=== PATIENT | male | born 1985 | race Caucasian/White ===

== ENCOUNTER 2021-05-09 20:41 | Inpatient (IN) | payer MEDICAID, SELFPAY ==
[2021-05-09 21:00] VITALS: BMI 28.1
[2021-05-09 21:01] VITALS: BP 153/110; PULSE 71; RESP 18; TEMP 36.6; O2SAT 97
[2021-05-09] MEDS: nicotine 2 mg Gum BUCCAL (21:53)
[2021-05-09 22:00] VITALS: BP 153/110; PULSE 71; RESP 18; TEMP 36.6; O2SAT 97
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
[2021-05-09] MEDS: metoprolol tartrate 50 mg Tablet PO (23:27)
[2021-05-09 23:28] VITALS: BP 156/110; RESP 16
[2021-05-09] MEDS: cloNIDine 0.1 mg Tablet PO (23:28)
[2021-05-09] MEDS: oxyCODONE-APAP 10-325 mg Tablet 1 TAB PO (23:28)
[2021-05-09] MEDS: lisinopril 10 mg Tablet PO (23:28)
[2021-05-09] MEDS: trazodone 50 mg Tablet PO (23:29)
[2021-05-09] MEDS: BuSPIRONE 10 mg Tablet 5 MG PO (23:29)
[2021-05-10] VITALS (8 sets, daily range): BP systolic 89–142; BP diastolic 54–85; PULSE 45–64; RESP 16–18; TEMP 36.4–36.6; O2SAT 97–98
[2021-05-10] MEDS: oxyCODONE-APAP 10-325 mg Tablet 1 TAB PO ×4 (07:29→21:09)
[2021-05-10] MEDS: BuSPIRONE 10 mg Tablet 5 MG PO (07:30)
[2021-05-10] MEDS: metoprolol tartrate 50 mg Tablet PO (07:30)
[2021-05-10] MEDS: lisinopril 10 mg Tablet PO (07:31)
[2021-05-10] MEDS: meloxicam 7.5 mg tablet 15 MG PO (07:31)
[2021-05-10] MEDS: nicotine 2 mg Gum BUCCAL ×5 (07:31→20:10)
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
--- NOTE | 2021-05-10 12:10 | PM.NHP ---
Providers/Chief Complaint Admitting Physician: Raj Nunez MD Chief Complaint: SI HPI NPU History of Present Illness Enrike Sauer is a 35 year old male Meds NPU Home Medications Medication Instructions Recorded Confirmed Last Taken Type buspirone 5 mg PO TID 05/09/21 05/09/21 05/09/21 13:00 History clonidine HCl 0.1 mg PO 2100 05/09/21 05/09/21 05/08/21 21:00 History cyclobenzaprine 10 mg PO BID PRN 05/09/21 05/09/21 05/09/21 10:43 History lisinopril 10 mg PO DAILY 05/09/21 05/09/21 05/09/21 10:43 History meloxicam 15 mg PO DAILY 05/09/21 05/09/21 05/09/21 10:43 History methocarbamol [Robaxin] 500 mg PO QID 05/09/21 05/09/21 05/08/21 21:00 History metoprolol tartrate [Lopressor] 50 mg PO DAILY 05/09/21 05/09/21 05/08/21 09:00 History oxycodone-acetaminophen [Percocet] 1 tab PO Q6H 05/09/21 05/09/21 05/07/21 21:00 History trazodone 50 mg PO 2100 PRN 05/09/21 05/09/21 05/08/21 21:00 History Allergies Allergy/AdvReac Type Severity Reaction Status Date / Time amoxicillin Allergy ALGY-Anaphy Verified 05/09/21 21:48 laxis haloperidol [From Haldol] Allergy ALGY-Anaphy Verified 05/09/21 21:48 laxis ziprasidone [From Geodon] Allergy ALGY-Anaphy Verified 05/09/21 21:48 laxis PFSH NPU PFSH: Family History (Updated 05/10/21 @ 01:47 by Saima Zhao RN) Father Suicide Sociopathic personality disorder Drug abuse Alcohol abuse Mother Bipolar disorder Drug abuse Vitals/I&O/Wt Last Vital Signs Temp 97.6 F 05/10/21 06:00 Pulse 45 L 05/10/21 06:00 Resp 16 05/10/21 07:29 BP 89/54 05/10/21 06:00 Pulse Ox 98 05/10/21 06:00 Weight last 48 hrs Weight 83.915 kg Weight 88.451 kg Involuntary Hold Information 96 Hour Hold: 96 Hour Involuntary Admission: No Coding Level of Care Code Acute Darkroom Technician for Madie [facility]
[2021-05-10] MEDS: escitalopram 10 mg Tablet PO (12:50)
[2021-05-10] MEDS: bisacodyl 5 mg Tablet 10 MG PO (14:03)
[2021-05-10] MEDS: BuSPIRONE 10 mg Tablet PO ×2 (14:03→20:11)
[2021-05-10] MEDS: polyethylene glycol 3350 Pkt 17 gm PO (17:04)
[2021-05-10] MEDS: betamethasone 0.05% Cream 15 gm 1 APPLIC TOPICAL (17:47)
--- NOTE | 2021-05-10 19:55 | PC.NURSE ---
The patient is requesting a pulmonary inhaler. Stated recently diagnosed COPD. Assessed lung sounds and noted diminished throughout with course bases. Patient not complaining of shortness of breath at this time but requesting an inhaler should he later develop symptoms.
[2021-05-10] MEDS: cloNIDine 0.1 mg Tablet PO (20:10)
[2021-05-10] MEDS: cyclobenzaprine 10 mg Tablet PO (20:12)
[2021-05-10] MEDS: methocarbamol 500 mg Tablet PO (20:12)
[2021-05-10] MEDS: hyDROXYzine 25 mg Capsule 50 MG PO (20:12)
[2021-05-10] MEDS: trazodone 50 mg Tablet 100 MG PO (20:12)
[2021-05-10] MEDS: benztropine 1 mg Tablet PO (20:19)
--- NOTE | 2021-05-10 20:20 | PC.NURSE ---
Patient requesting PRN meds: Robaxin 500mg, Flexeril 10mg, Cogentin 1mg for muscle spasms , muscle tightness and Tardive dyskensia. also Visteril 50 mg for anxiety. All meds given.
--- NOTE | 2021-05-10 21:15 | PC.NURSE ---
Oxycodone 10/325 mg given for C/O back pain rated 8/10 on 0/10 scale.
[2021-05-11] VITALS (10 sets, daily range): BP systolic 96–130; BP diastolic 62–83; PULSE 52–63; RESP 16–19; TEMP 36.1–36.8; O2SAT 95–98
[2021-05-11] MEDS: nicotine 2 mg Gum BUCCAL ×5 (06:56→21:01)
[2021-05-11] MEDS: oxyCODONE-APAP 10-325 mg Tablet 1 TAB PO ×4 (06:56→21:02)
[2021-05-11] MEDS: lisinopril 10 mg Tablet PO (08:13)
[2021-05-11] MEDS: escitalopram 10 mg Tablet PO (08:13)
[2021-05-11] MEDS: metoprolol tartrate 50 mg Tablet PO (08:13)
[2021-05-11] MEDS: meloxicam 7.5 mg tablet 15 MG PO (08:13)
[2021-05-11] MEDS: BuSPIRONE 10 mg Tablet PO ×3 (08:14→21:00)
[2021-05-11] MEDS: polyethylene glycol 3350 Pkt 17 gm PO ×2 (08:15→18:02)
--- NOTE | 2021-05-11 10:50 | PC.NURSE ---
Addendum entered by Yolanda Marroquin RN 05/11/21 11:39: Pain is improving. Original Note: Patient at the nurses station requesting his pain medication and some nicotine gum. PRN oxycodone and nicotine gum administered.
[2021-05-11] MEDS: albuterol 8 gm MDI 2 PUFF INHALATION ×2 (14:59→20:42)
--- NOTE | 2021-05-11 16:01 | PM.NPN ---
Subjective NPU Subjective: Interval history: The patient says he is feeling better today. He worked with the social science manager yesterday to reapply for disability. He says this has been weighing heavily on his mind, causing him a great deal of stress, and he now feels more hopeful because there is a potential of resolution. He does feel that if he were to go home, and find out he had actually lost his disability, he would again feel suicidal. In fact, he says, no, I would kill myself. He slept fairly well last night. Energy and motivation are better today. Suicidal ideation here has decreased. He denies hearing voices or seeing things. There is no paranoia noted. He denies any medication side effects. Mental Status Exam MSE Comments: I met with the patient on the unit. He was calm, cooperative, interactive, and made good eye contact. No psychomotor agitation or retardation. Speech is at a normal volume, and regular rate and rhythm, without pressure. Alert, oriented to person, place, time, situation. Attention and concentration were intact to exam. Memory is intact to the interview. Mood is improved. Affect is brighter. Thought process is logical and goal-directed. Thought content: Denies auditory and visual hallucinations. No delusions noted. No o current suicidal ideation, no homicidal ideation. He says he would again feel quite suicidal if he returned home to the same stressors he had that precipitated admission. Insight and judgment appear to be fair. Vitals/I&O/Wt Last Vital Signs Temp 96.9 F L 05/11/21 14:00 Pulse 52 L 05/11/21 14:00 Resp 18 05/11/21 14:00 BP 113/69 05/11/21 14:00 Pulse Ox 96 05/11/21 14:49 Weight last 48 hrs Weight 83.915 kg Weight 88.451 kg A&P Assessment and plan (1) Borderline personality disorder: Status: Acute (2) Major depressive disorder, recurrent severe without psychotic features: Status: Acute (3) PTSD (post-traumatic stress disorder): Status: Acute (4) COPD with asthma: Status: Acute (5) Family history of suicide: Status: Acute (6) Suicide attempt by hanging: Status: Acute Additional A&P Information Enrike Sauer is a 35 year old male with a history of PTSD with psychosis, chronic pain on Percocet, and a medical marijuana card, who was transferred from [facility] in [place], [place] with complaints of a plan to hang himself. He has a long history of traumatic experiences starting in childhood. His main stressor is that he has lost his disability status. 1. Continue current medication. He is now on trazodone 100 mg at bedtime, BuSpar 10 mg 3 times a day, and Lexapro 10 mg a day. 2. Continue every 15 minute checks for safety. 3. Encourage individual, group and milieu therapies. 4. Encourage sober living treatment after discharge at the highest level of care to which he is willing to commit. 5. The patient was seen by respiratory therapy and was prescribed albuterol inhaler, 2 puffs every 4 hours as needed for Involuntary Hold Information 96 Hour Hold: 96 Hour Involuntary Admission: No Attestations NPU Medical Necessity Statement*: Psychiatric hospitalization is medically necessary to prevent access to lethal means, to reevaluate medication, and to coordinate a safe discharge. Patient will be in the hospital for over 2 midnights. Likely length of stay is 2-4 days. Coding Level of Care Code Acute Agricultural Systems Specialist for g Fwd Diagnoses Borderline personality disorder F60.3 Major depressive disorder, recurrent severe without psychotic features F33.2 PTSD (post-traumatic stress disorder) F43.10 COPD with asthma J44.9 Family history of suicide Z81.8 Suicide attempt by hanging T71.162A
--- NOTE | 2021-05-11 16:01 | PC.NURSE ---
Patient at nurses station requesting pain medication and nicotine gum. Medication administered.
[2021-05-11] MEDS: benztropine 1 mg Tablet PO (16:27)
--- NOTE | 2021-05-11 16:27 | PC.NURSE ---
Patient at nurses station requesting medication for his tics in his face. Medication administered.
[2021-05-11] MEDS: methocarbamol 500 mg Tablet PO (20:59)
[2021-05-11] MEDS: trazodone 50 mg Tablet 100 MG PO (20:59)
[2021-05-11] MEDS: cyclobenzaprine 10 mg Tablet PO (21:01)
[2021-05-11] MEDS: cloNIDine 0.1 mg Tablet PO (21:01)
[2021-05-11] MEDS: hyDROXYzine 25 mg Capsule 50 MG PO (21:04)
--- NOTE | 2021-05-11 21:10 | PC.NURSE ---
Patient requested PRN meds for anxiety, muscle spasms, muscle tightness and pain. Vistaril 50mg PO, Robaxin 500mg PO, Flexeril 10mg PO, Oxeycodone 10/325 PO. Given.
[2021-05-12] VITALS (10 sets, daily range): BP systolic 107–150; BP diastolic 70–92; PULSE 55–64; RESP 15–20; TEMP 36.1–37; O2SAT 96–98
[2021-05-12] MEDS: oxyCODONE-APAP 10-325 mg Tablet 1 TAB PO ×5 (06:39→22:46)
[2021-05-12] MEDS: nicotine 2 mg Gum BUCCAL ×6 (06:39→20:20)
[2021-05-12] MEDS: BuSPIRONE 10 mg Tablet PO ×3 (08:42→20:20)
[2021-05-12] MEDS: metoprolol tartrate 50 mg Tablet PO (08:42)
[2021-05-12] MEDS: lisinopril 10 mg Tablet PO (08:42)
[2021-05-12] MEDS: meloxicam 7.5 mg tablet 15 MG PO (08:42)
[2021-05-12] MEDS: escitalopram 10 mg Tablet PO (08:42)
[2021-05-12] MEDS: polyethylene glycol 3350 Pkt 17 gm PO ×2 (08:43→20:19)
[2021-05-12] MEDS: albuterol 8 gm MDI 2 PUFF INHALATION (09:19)
[2021-05-12] MEDS: benztropine 1 mg Tablet PO (11:00)
--- NOTE | 2021-05-12 11:04 | PC.NURSE ---
PRN Cogentin Physician ordered 2 mg po Cogentin for patients tardive diskinesia.
--- NOTE | 2021-05-12 11:35 | P.PN_ITS ---
Subjective NPU Subjective: Interval history: The patient says he slept well without nightmares. He did have some flashbacks yesterday. He says his mood has been anxious, and worried, about whether his disability will be rescinded. He denies suicidal and homicidal ideation. Medication side effects include constipation caused by Percocet. We discussed potential treatments including senna and Dulcolax. He also says that he has had mouth twitching in the past and has been prescribed Cogentin, which has been helpful. The patient says that he was seen by respiratory therapy and prescribed an inhaler, which was very helpful to him. Mental Status Exam MSE Comments: I met with the patient in his room. He was calm, cooperative, interactive, and made good eye contact. No psychomotor agitation or retardation. Speech is at a normal volume, and regular rate and rhythm, without pressure. Alert, oriented to person, place, time, situation. Attention and concentration were intact to exam. Memory is intact to the interview. Mood is improved. Affect is brighter. Thought process is logical and goal-directed. Thought content: Denies auditory and visual hallucinations. No delusions noted. No o current suicidal ideation, no homicidal ideation. As yesterday, he says he would again feel quite suicidal if he returned home to the same stressors he had that precipitated admission. Insight and judgment appear to be fair. Vitals/I&O/Wt Last Vital Signs Temp 98.1 F 05/12/21 06:00 Pulse 55 L 05/12/21 06:00 Resp 16 05/12/21 06:39 BP 107/70 05/12/21 06:00 Pulse Ox 98 05/12/21 06:39 Weight last 48 hrs Weight 88.451 kg A&P Assessment and plan (1) Major depressive disorder, recurrent severe without psychotic features: Status: Acute (2) PTSD (post-traumatic stress disorder): Status: Acute (3) Family history of suicide: Status: Acute (4) Suicide attempt by hanging: Status: Acute (5) COPD with asthma: Status: Acute (6) Borderline personality disorder: Status: Acute Additional A&P Information Enrike Sauer is a 35 year old male with a history of PTSD with psychosis, chronic pain on Percocet, and a medical marijuana card, who was transferred from [facility] in [place], [place] with complaints of a plan to hang himself. He has a long history of traumatic experiences starting in childhood. His main stressor is that he has lost his disability status. 1. Continue current medication. He is now on trazodone 100 mg at bedtime, BuSpar 10 mg 3 times a day, and Lexapro 10 mg a day. 2. Continue every 15 minute checks for safety. 3. Encourage individual, group and milieu therapies. 4. Encourage sober living treatment after discharge at the highest level of care to which he is willing to commit. 5. The patient was seen by respiratory therapy yesterday and was prescribed albuterol inhaler, 2 puffs every 4 hours as needed for shortness of breath 6. We are assisting the patient with his disability reapplication. Losing his disability, is the major stressor that precipitated his admission. Involuntary Hold Information 96 Hour Hold: 96 Hour Involuntary Admission: No Attestations NPU Medical Necessity Statement*: Psychiatric hospitalization is medically necessary to prevent access to lethal means, to reevaluate medication, and to coordinate a safe discharge. Patient will be in the hospital for over 2 midnights. Likely length of stay is 1-3 days. Coding Level of Care Code Acute Inspector [employer] for [facility] Fwd Diagnoses Major depressive disorder, recurrent severe without psychotic features F33.2 PTSD (post-traumatic stress disorder) F43.10 Family history of suicide Z81.8 Suicide attempt by hanging T71.162A COPD with asthma J44.9 Borderline personality disorder F60.3
[2021-05-12] MEDS: bisacodyl 5 mg Tablet 10 MG PO (13:04)
[2021-05-12] MEDS: cloNIDine 0.1 mg Tablet PO (20:20)
[2021-05-12] MEDS: hyDROXYzine 25 mg Capsule 50 MG PO (20:58)
[2021-05-12] MEDS: trazodone 50 mg Tablet 100 MG PO (20:58)
--- NOTE | 2021-05-12 20:59 | PC.NURSE ---
pt requested anxiety med, vistaril 50mg po given.
[2021-05-12] MEDS: trazodone 50 mg Tablet PO (22:45)
[2021-05-13 06:00] VITALS: BP 125/76; PULSE 83; RESP 16; TEMP 36.8; O2SAT 98
[2021-05-13] MEDS: metoprolol tartrate 50 mg Tablet PO (08:41)
[2021-05-13] MEDS: lisinopril 10 mg Tablet PO (08:41)
[2021-05-13 08:42] VITALS: RESP 18
[2021-05-13] MEDS: meloxicam 7.5 mg tablet 15 MG PO (08:42)
[2021-05-13] MEDS: escitalopram 10 mg Tablet PO (08:42)
[2021-05-13] MEDS: BuSPIRONE 10 mg Tablet PO ×2 (08:42→14:19)
[2021-05-13] MEDS: oxyCODONE-APAP 10-325 mg Tablet 1 TAB PO ×3 (08:42→17:09)
[2021-05-13] MEDS: ondansetron 4 MG Tablet PO ×2 (08:42→11:56)
[2021-05-13] MEDS: nicotine 2 mg Gum BUCCAL ×3 (08:43→17:09)
--- NOTE | 2021-05-13 08:44 | PC.NURSE ---
PRN ZOFRAN 4 MG GIVEN PO PER PT C/O STATED NAUSEA
[2021-05-13 10:41] VITALS: RESP 18
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
[2021-05-13 12:22] VITALS: RESP 18
[2021-05-13 13:07] VITALS: RESP 17
[2021-05-13] MEDS: betamethasone 0.05% Cream 15 gm 1 APPLIC TOPICAL (14:21)
--- NOTE | 2021-05-13 14:23 | PC.NURSE ---
PRN DIPROLENE 1 APPLICATION GIVEN PO PER PT C/O STATED IRRITATION TO HIS HEAD AREA
--- NOTE | 2021-05-13 14:27 | NPU.GN ---
[facility] Topic: Coping skills for stress General Mood of Group Patient did not come to group today. Laying in bed asleep.
--- NOTE | 2021-05-13 16:48 | PC.RESP ---
Pulmonary Rehab information sent to patient.
[2021-05-13 17:09] VITALS: RESP 18
== END 2021-05-13 18:24 | disposition home or self-care (01) | DRG 882 ==
PROVIDERS: Admitting Provider Psychiatry & Neurology Child & Adolescent Psychiatry; Visit Provider Psychiatry & Neurology Child & Adolescent Psychiatry
DX: F43.10 Post-traumatic stress disorder, unspecified (principal); F33.2 Major depressive disorder, recurrent severe without psychotic features; R45.851 Suicidal ideations; F60.3 Borderline personality disorder; F12.90 Cannabis use, unspecified, uncomplicated; G89.29 Other chronic pain; M54.31 Sciatica, right side; J44.9 Chronic obstructive pulmonary disease, unspecified; I10 Essential (primary) hypertension; R00.0 Tachycardia, unspecified; G62.9 Polyneuropathy, unspecified; Z81.8 Family history of other mental and behavioral disorders; Z62.810 Personal history of physical and sexual abuse in childhood; Z63.0 Problems in relationship with spouse or partner; Z91.5 Personal history of self-harm
CPT/HCPCS: 94640; 94664; J3535; Q0162

== ENCOUNTER 2022-05-08 21:01 | Inpatient (IN) | payer MEDICAID, SELFPAY ==
[2022-05-08 15:43] VITALS: BP 147/97; PULSE 93; RESP 18; TEMP 36.7; O2SAT 97
[2022-05-08 21:07] VITALS: BMI 27.3
[2022-05-08] MEDS: trazodone 50 mg Tablet PO (21:19)
[2022-05-08] MEDS: nicotine 2 mg Gum BUCCAL (21:19)
[2022-05-08 22:00] VITALS: BP 147/97; PULSE 93; RESP 18; TEMP 36.7; O2SAT 97
[2022-05-09] VITALS (7 sets, daily range): BP systolic 133–136; BP diastolic 65–77; PULSE 69–74; RESP 16–18; TEMP 36.8; O2SAT 96–98
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
[2022-05-09] MEDS: nicotine 2 mg Gum BUCCAL ×5 (09:14→20:45)
[2022-05-09] MEDS: metoprolol tartrate 50 mg Tablet 25 MG PO (09:14)
[2022-05-09] MEDS: methocarbamol 500 mg Tablet PO ×3 (09:14→20:44)
[2022-05-09] MEDS: lisinopril 10 mg Tablet PO (09:14)
[2022-05-09] MEDS: venlafaxine ER (24HR) 150 mg Capsule PO (09:14)
[2022-05-09] MEDS: meloxicam 7.5 mg tablet 15 MG PO (09:14)
--- NOTE | 2022-05-09 09:53 | PC.NURSE ---
called [facility] [phone], in [place], [place] to hol[place]y med Oxy per pt & physician request. they said he picked up script last on March 11, Oxy 10/325 mg qty #120...
[2022-05-09] MEDS: oxyCODONE-APAP 10-325 mg Tablet 1 TAB PO ×4 (10:05→22:28)
[2022-05-09] MEDS: quetiapine 100 mg Tablet PO (20:44)
[2022-05-09] MEDS: trazodone 50 mg Tablet PO (20:44)
[2022-05-10 05:50] VITALS: BP 98/62; PULSE 50; RESP 18; O2SAT 96
[2022-05-10] MEDS: metoprolol tartrate 50 mg Tablet 25 MG PO (08:21)
[2022-05-10] MEDS: lisinopril 10 mg Tablet PO (08:22)
[2022-05-10] MEDS: methocarbamol 500 mg Tablet PO ×3 (08:22→22:09)
[2022-05-10] MEDS: meloxicam 7.5 mg tablet 15 MG PO (08:23)
[2022-05-10] MEDS: venlafaxine ER (24HR) 75 mg Capsule 225 MG PO (08:23)
[2022-05-10 08:37] VITALS: RESP 18
[2022-05-10] MEDS: nicotine 2 mg Gum BUCCAL ×5 (08:37→22:31)
[2022-05-10] MEDS: oxyCODONE-APAP 10-325 mg Tablet 1 TAB PO ×4 (08:37→22:09)
[2022-05-10 13:40] VITALS: RESP 16
[2022-05-10 14:00] VITALS: BP 123/67; PULSE 66; RESP 15; TEMP 36.9; O2SAT 98
[2022-05-10] MEDS: simethicone 80 mg Chew PO (14:06)
--- NOTE | 2022-05-10 14:57 | P.NPUPN_ITS ---
Subjective NPU Subjective: Patient is a 36-year-old white male with a history of PTSD and major depressive disorder admitted with suicidal ideation with a history of chronic pain. Patient had discussed his progress with EMDR therapy recently. He continues to endorse having suicidal thoughts but reports some improved a bility to manage his stressors. He continues to endorse nightmares and flashbacks. He had described in having an extensive history of suicidal thoughts chronically and reports significant feelings of hopelessness and issues with managing the frequent panic attacks. Patient reported that he had some increase in agitation and reports the Seroquel had helped him sleep better but did not help him to keep calm. He continue to report low energy Mental Status Exam MSE Comments: Patient's initially appeared pacing and appeared easily startled throughout much of the interview. He was alert and oriented to person place time and situation. His mood was described as depressed. his affect appeared restricted. His gait was antalgic. His hygiene was fair. His speech was normal in regards to rate rhythm and prosody. His thought process was linear and logical and goal directed. His thought content showed no evidence of active homicidal ideation. He did endorse suicidal ideation with a plan reported previously but able to contract for safety on interview. His recent and remote memory appeared intact. There was no clear evidence of delusional thinking. His insight was fair. His judgment was poor. His impulse control appeared poor. Vitals/I&O/Wt Last Vital Signs Temp 98.4 F 05/10/22 14:00 Pulse 66 05/10/22 14:00 Resp 15 05/10/22 14:00 BP 123/67 05/10/22 14:00 Pulse Ox 98 05/10/22 14:00 O2 Del Method 05/08/22 22:00 Weight last 48 hrs Weight 81.647 kg A&P Assessment and plan (1) Major depressive disorder, recurrent severe without psychotic features: Status: Chronic (2) PTSD (post-traumatic stress disorder): Status: Chronic (3) Borderline personality disorder: Status: Chronic (4) COPD with asthma: Status: Chronic Plan The patient is a 36-year-old white male with a history of PTSD major depressive disorder along with borderline personality traits with a history of multiple inpatient hospitalizations currently reporting worsening depression with continued chronic PTSD symptoms that appear unabated. TO-15 minute checks Continue Effexor XR 225mg in am Increase Seroquel 150mg at night to target PTSD symptoms, zyprexa prn 5mg for acute agitation Involuntary Hold Information 96 Hour Hold: 96 Hour Involuntary Admission: No Attestations NPU Medical Necessity Statement*: Psychiatric hospitalization is medically necessary to prevent access to lethal means, to reevaluate medication, and to coordinate a safe discharge.Patient's likely length of stay is 2-4 days. Coding Level of Care Code Established Pt Acute Senior Interaction Designer for Chg Fwd Patient Type Established Medical Decision Making Straight Forward Diagnoses Major depressive disorder, recurrent severe without psychotic features F33.2 PTSD (post-traumatic stress disorder) F43.10 Borderline personality disorder F60.3 COPD with asthma J44.9
[2022-05-10 17:06] VITALS: RESP 16; O2SAT 99
[2022-05-10 21:03] VITALS: BP 123/71; PULSE 76; RESP 16; TEMP 36.5; O2SAT 98
[2022-05-10] MEDS: quetiapine 300 mg Tablet 150 MG PO (22:09)
[2022-05-11] VITALS (7 sets, daily range): BP systolic 134–146; BP diastolic 54–88; PULSE 64–72; RESP 16–18; TEMP 36.6–37; O2SAT 98
[2022-05-11] MEDS: oxyCODONE-APAP 10-325 mg Tablet 1 TAB PO ×5 (06:46→20:24)
[2022-05-11] MEDS: nicotine 2 mg Gum BUCCAL ×6 (06:48→20:26)
[2022-05-11] MEDS: venlafaxine ER (24HR) 75 mg Capsule 225 MG PO (08:13)
[2022-05-11] MEDS: methocarbamol 500 mg Tablet PO ×3 (08:13→20:24)
[2022-05-11] MEDS: lisinopril 10 mg Tablet PO (08:14)
[2022-05-11] MEDS: metoprolol tartrate 50 mg Tablet 25 MG PO (08:14)
[2022-05-11] MEDS: meloxicam 7.5 mg tablet 15 MG PO (08:14)
--- NOTE | 2022-05-11 11:14 | P.NPUPN_ITS ---
Subjective NPU Subjective: Patient is a 36-year-old white male with a history of PTSD and major depressive disorder admitted with suicidal ideation with a history of chronic pain. Patient had requested that he be given EMDR on discharge. Patient had reported that he continues to struggle with trust of others, reports intense mood swings, unstable affect, and continued PTSD symptoms including depressed mood, chronic suicidal thoughts and frequent feelings of hopelessness. Patient reports He continues to endorse having suicidal thoughts but reports some improved ability to manage his stressors. He continues to endorse nightmares and flashbacks. He had described in having an extensive history of suicidal thoughts chronically and reports significant feelings of hopelessness and issues with managing the frequent panic attacks. Patient had obsessed about wanting to be evaluated for Mental Status Exam MSE Comments: Patient's casually dressed white male, appeared his stated age. He was alert and oriented to person, place and time. His mood was described as depressed. his affect remained restricted. His gait was antalgic. His hygiene was fair. His speech was normal in regards to rate rhythm and prosody. His thought process was linear and logical and goal directed. His thought content showed no evidence of active homicidal ideation. He did endorse suicidal ideation with a plan reported previously but able to contract for safety on interview. His recent and remote memory appeared intact. There was no clear evidence of delusional thinking. His insight was fair. His judgment was poor. His impulse control appeared poor. Vitals/I&O/Wt Last Vital Signs Temp 98 F 05/11/22 14:00 Pulse 64 05/11/22 14:00 Resp 17 05/11/22 17:23 BP 134/54 05/11/22 14:00 Pulse Ox 98 05/11/22 14:00 O2 Del Method 05/08/22 22:00 Weight last 48 hrs Weight 81.556 kg A&P Assessment and plan (1) Major depressive disorder, recurrent severe without psychotic features: Status: Chronic (2) PTSD (post-traumatic stress disorder): Status: Chronic (3) Borderline personality disorder: Status: Chronic (4) COPD with asthma: Status: Chronic Plan The patient is a 36-year-old white male with a history of PTSD major depressive disorder along with borderline personality traits with a history of multiple inpatient hospitalizations currently reporting worsening depression with continued chronic PTSD symptoms that appear unabated. TO-15 minute checks Continue Effexor XR 225mg in am Increase Seroquel 200mg at night to target PTSD symptoms, zyprexa prn 5mg for acute agitation Calamine lotion for poison clayton. Involuntary Hold Information 96 Hour Hold: 96 Hour Involuntary Admission: No Attestations NPU Medical Necessity Statement*: Psychiatric hospitalization is medically necessary to prevent access to lethal means, to reevaluate medication, and to coordinate a safe discharge.Patient's likely length of stay is 2-4 days. Coding Level of Care Code Established Pt Acute Claims Attorney for [facility] Patient Type Established History Problem Focused Exam Problem Focused Medical Decision Making Straight Forward Diagnoses Major depressive disorder, recurrent severe without psychotic features F33.2 PTSD (post-traumatic stress disorder) F43.10 Borderline personality disorder F60.3 COPD with asthma J44.9
[2022-05-11] MEDS: simethicone 80 mg Chew PO ×2 (13:37→20:38)
--- NOTE | 2022-05-11 13:38 | PC.NURSE ---
Addendum entered by Jewell Foss LPN 05/11/22 16:34: prn med effective no further c/o gas Original Note: PRN MYLICON 80 MG CHEWABLE TAB GIVEN PO PER PT C/O GAS
[2022-05-11] MEDS: quetiapine 100 mg Tablet 200 MG PO (20:25)
[2022-05-11] MEDS: hyDROXYzine 25 mg Capsule 50 MG PO (20:38)
[2022-05-12] VITALS (7 sets, daily range): BP systolic 110–151; BP diastolic 64–91; PULSE 77–97; RESP 14–20; TEMP 36.6–36.9; O2SAT 96–99
[2022-05-12] MEDS: nicotine 2 mg Gum BUCCAL ×8 (06:35→23:03)
[2022-05-12] MEDS: oxyCODONE-APAP 10-325 mg Tablet 1 TAB PO ×5 (06:36→22:46)
[2022-05-12] MEDS: meloxicam 7.5 mg tablet 15 MG PO (07:51)
[2022-05-12] MEDS: venlafaxine ER (24HR) 75 mg Capsule 225 MG PO (07:51)
[2022-05-12] MEDS: lisinopril 10 mg Tablet PO (07:52)
[2022-05-12] MEDS: methocarbamol 500 mg Tablet PO ×3 (07:52→20:08)
[2022-05-12] MEDS: metoprolol tartrate 50 mg Tablet 25 MG PO (07:52)
[2022-05-12] MEDS: simethicone 80 mg Chew PO ×3 (08:48→21:46)
--- NOTE | 2022-05-12 08:49 | PC.NURSE ---
PRN MYLICON 80 MG CHEWABLE GIVEN PO PER PT C/O GAS
--- NOTE | 2022-05-12 18:41 | P.NPUPN_ITS ---
Subjective NPU Subjective: Patient is a 36-year-old white male with a history of PTSD, BPDO and major depressive disorder admitted with suicidal ideation with a history of chronic pain. Patient reports having suicidal thoughts frequently but reports that they have been quieter. He continued to report having low energy. He did report some improvement with sleep. He does continue to report having frequent nightmares. He reports that he wishes to get further psychotherapy to help with managing his flashbacks nightmares avoidance and problems with being easily startled. He states that he likes being in places where there are less people. He had continue to report significant itching with apparent poison clayton noted on his body. He reported less angry thoughts and states that he has been feeling calmer with the Seroquel. He had reported a history of relative isolation and reported having struggles with maintaining relationships and trusting others. Mental Status Exam MSE Comments: Patient's casually dressed white male, appeared his stated age. He was pleasant and cooperative on interview. He was alert and oriented to person, place and time. His mood was described as okay his affect remained restricted. His gait was antalgic. His hygiene was fair. His speech was normal in regards to rate rhythm and prosody. His thought process was linear and logical and goal directed. His thought content showed no evidence of active homicidal ideation. He did endorse suicidal ideation with no plan and is able to contract for safety on interview. His recent and remote memory appeared intact. There was no clear evidence of delusional thinking. His insight was fair. His judgment was poor. His impulse control appeared to be better. Vitals/I&O/Wt Last Vital Signs Temp 98 F 05/12/22 14:00 Pulse 77 05/12/22 14:00 Resp 14 05/12/22 14:43 BP 114/64 05/12/22 14:00 Pulse Ox 96 05/12/22 14:43 O2 Del Method 05/12/22 06:00 Weight last 48 hrs Weight 81.556 kg A&P Assessment and plan (1) Major depressive disorder, recurrent severe without psychotic features: Status: Chronic (2) PTSD (post-traumatic stress disorder): Status: Chronic (3) Borderline personality disorder: Status: Chronic (4) COPD with asthma: Status: Chronic Plan The patient is a 36-year-old white male with a history of PTSD major depressive disorder along with borderline personality traits with a history of multiple inpatient hospitalizations currently reporting worsening depression with continued chronic PTSD symptoms that appear unabated. TO-15 minute checks Continue Effexor XR 225mg in am continue Seroquel 200mg at night to target PTSD symptoms, zyprexa prn 5mg for acute agitation Calamine lotion for poison clayton. Case management services necessary with psychotherapy for PTSD likely to be VERY helpful. Involuntary Hold Information 96 Hour Hold: 96 Hour Involuntary Admission: No Attestations NPU Medical Necessity Statement*: Psychiatric hospitalization is medically necessary to prevent access to lethal means, to reevaluate medication, and to coordinate a safe discharge.Patient's likely length of stay is 1-3 days. Coding Level of Care Code Established Pt Acute Fabric Separator Operator for Madie Potts Patient Type Established History Problem Focused Exam Problem Focused Medical Decision Making Straight Forward Diagnoses Major depressive disorder, recurrent severe without psychotic features F33.2 PTSD (post-traumatic stress disorder) F43.10 Borderline personality disorder F60.3 COPD with asthma J44.9
[2022-05-12] MEDS: hyDROXYzine 25 mg Capsule 50 MG PO (20:08)
[2022-05-12] MEDS: quetiapine 100 mg Tablet 200 MG PO (20:08)
[2022-05-13 06:00] VITALS: BP 156/92; PULSE 83; RESP 18; TEMP 37.2; O2SAT 98
[2022-05-13] MEDS: nicotine 2 mg Gum BUCCAL ×6 (06:02→21:48)
[2022-05-13] MEDS: oxyCODONE-APAP 10-325 mg Tablet 1 TAB PO ×5 (06:02→22:46)
[2022-05-13 10:11] VITALS: RESP 18
[2022-05-13] MEDS: meloxicam 7.5 mg tablet 15 MG PO (10:12)
[2022-05-13] MEDS: methocarbamol 500 mg Tablet PO ×3 (10:12→20:03)
[2022-05-13] MEDS: venlafaxine ER (24HR) 75 mg Capsule 225 MG PO (10:13)
[2022-05-13] MEDS: metoprolol tartrate 50 mg Tablet 25 MG PO (10:14)
[2022-05-13] MEDS: lisinopril 10 mg Tablet PO (10:15)
[2022-05-13] MEDS: OLANZapine 5 mg ODT PO (12:19)
[2022-05-13] MEDS: benztropine 1 mg Tablet PO (12:54)
--- NOTE | 2022-05-13 12:58 | PC.NURSE ---
At 1219 patient was given zydis 5 mg sl given for voiced anxiety.
[2022-05-13 14:00] VITALS: BP 154/83; PULSE 74; RESP 16; TEMP 36.9; O2SAT 97
[2022-05-13 14:25] VITALS: RESP 18
--- NOTE | 2022-05-13 17:44 | W.PM.NPUPNS ---
Subjective NPU Subjective: Patient is a 36-year-old white male with a history of PTSD, BPDO and major depressive disorder admitted with suicidal ideation with a history of chronic pain. Patient reports having suicidal thoughts frequently but reports that they have been less intense. He continues to engage in splitting on the milieu. He continues to require redirection on the milieu asking that he be allowed to transfer to a different hospital because social human services assistants here were not meeting his needs in a timely fashion. He had reported that he could simply be discharged and go back to the emergency room but transferred somewhere else. Despite this, he continues to report being easily startled and reports that he does not wish to go to a long term and reports being frustrated with not having his needs met. Patient has been minimally compliant in groups but had reported hope of receiving intense outpatient services such as emdr upon his discharge and follow up with outpatient treatment. He had reported paranoia. Mental Status Exam MSE Comments: Patient's casually dressed white male, appeared his stated age. He was pleasant and cooperative on interview. He was alert and oriented to person, place and time. His mood was described as upset his affect was labile. His gait was antalgic. His hygiene was fair. His speech was normal in regards to rate rhythm and prosody. His thought process was linear and logical and goal directed. His thought content showed no evidence of active homicidal ideation. He overvalued and devalued others throughout the interview. He did endorse suicidal ideation with no plan and is able to contract for safety on interview. His recent and remote memory appeared intact. There was no clear evidence of delusional thinking. His insight was poor His judgment was poor. His impulse control appeared to be goodlimited. Vitals/I&O/Wt Last Vital Signs Temp 98.5 F 05/13/22 14:00 Pulse 74 05/13/22 14:00 Resp 18 05/13/22 14:25 BP 154/83 05/13/22 14:00 Pulse Ox 97 05/13/22 14:00 O2 Del Method 05/13/22 14:00 A&P Assessment and plan (1) Major depressive disorder, recurrent severe without psychotic features: Status: Chronic (2) PTSD (post-traumatic stress disorder): Status: Chronic (3) Borderline personality disorder: Status: Chronic (4) COPD with asthma: Status: Chronic Plan The patient is a 36-year-old white male with a history of PTSD major depressive disorder along with borderline personality traits with a history of multiple inpatient hospitalizations currently reporting worsening depression with continued chronic PTSD symptoms that appear unabated. TO-15 minute checks Continue Effexor XR 225mg in am continue Seroquel 200mg at night to target PTSD symptoms, zyprexa prn 5mg for acute agitation Calamine lotion for poison clayton. Case management services necessary with psychotherapy for PTSD likely to be VERY helpful. Involuntary Hold Information 96 Hour Hold: 96 Hour Involuntary Admission: No Attestations NPU Medical Necessity Statement*: Psychiatric hospitalization is medically necessary to prevent access to lethal means, to reevaluate medication, and to coordinate a safe discharge.Patient's likely length of stay is 1-3 days. Coding Level of Care Code Established Pt Acute Quality Lab Technician for Madie Potts Patient Type Established History Problem Focused Exam Problem Focused Medical Decision Making Straight Forward Diagnoses Major depressive disorder, recurrent severe without psychotic features F33.2 PTSD (post-traumatic stress disorder) F43.10 Borderline personality disorder F60.3 COPD with asthma J44.9
[2022-05-13] MEDS: hyDROXYzine 25 mg Capsule 50 MG PO (20:02)
[2022-05-13] MEDS: quetiapine 100 mg Tablet 200 MG PO (20:02)
[2022-05-13 20:15] VITALS: BP 115/75; PULSE 82; RESP 18; TEMP 36.6; O2SAT 98
[2022-05-13 22:46] VITALS: RESP 18; O2SAT 98
[2022-05-14] MEDS: nicotine 2 mg Gum BUCCAL ×8 (00:54→21:02)
[2022-05-14 06:00] VITALS: BP 136/89; PULSE 79; RESP 18; TEMP 37.1; O2SAT 96
[2022-05-14] MEDS: oxyCODONE-APAP 10-325 mg Tablet 1 TAB PO ×5 (06:24→22:27)
[2022-05-14] MEDS: OLANZapine 5 mg ODT PO (08:51)
[2022-05-14] MEDS: venlafaxine ER (24HR) 75 mg Capsule 225 MG PO (09:47)
[2022-05-14] MEDS: methocarbamol 500 mg Tablet PO ×3 (09:48→21:01)
[2022-05-14] MEDS: lisinopril 10 mg Tablet PO (09:48)
[2022-05-14] MEDS: metoprolol tartrate 50 mg Tablet 25 MG PO (09:48)
[2022-05-14] MEDS: meloxicam 7.5 mg tablet 15 MG PO (09:48)
[2022-05-14 10:18] VITALS: RESP 16; O2SAT 98
[2022-05-14 14:00] VITALS: BP 126/77; PULSE 64; RESP 17; O2SAT 96
[2022-05-14 14:18] VITALS: RESP 16; O2SAT 98
--- NOTE | 2022-05-14 16:46 | P.NPUPN_ITS ---
Subjective NPU Subjective: Patient is a 36-year-old white male with a history of PTSD, BPDO and major depressive disorder admitted with suicidal ideation with a history of chronic pain. Patient continued to endorse suicidal thoughts but reports that he has been focusing better on his problems including housing. Patient reports continued PTSD symptoms as well and reports that he has been feeling more optimistic on the unit. He continues to struggle with impulsivity and poor frustration tolerance on the milieu. He reports wanting to attend psychotherapy on weekly basis when outpatient treatment begins. Mental Status Exam MSE Comments: Patient's casually dressed white male, appeared his stated age. He was pleasant and cooperative on interview. He was alert and oriented to person, place and time. His mood was described as better his affect was labile and mood incongruent His gait was antalgic. His hygiene was fair. His speech was normal in regards to rate rhythm and prosody. His thought process was linear and logical and goal directed. His thought content showed no evidence of active homicidal ideation. He overvalued and devalued others throughout the interview. He did endorse suicidal ideation with no plan and is able to contract for safety on interview. His recent and remote memory appeared intact. There was no clear evidence of delusional thinking. His insight was poor His judgment was poor. His impulse control appeared to be limited. . Vitals/I&O/Wt Last Vital Signs Temp 98.8 F 05/14/22 06:00 Pulse 64 05/14/22 14:00 Resp 16 05/14/22 14:18 BP 126/77 05/14/22 14:00 Pulse Ox 98 05/14/22 14:18 O2 Del Method 05/14/22 14:00 A&P Assessment and plan (1) Major depressive disorder, recurrent severe without psychotic features: Status: Chronic (2) PTSD (post-traumatic stress disorder): Status: Chronic (3) Borderline personality disorder: Status: Chronic (4) COPD with asthma: Status: Chronic Plan The patient is a 36-year-old white male with a history of PTSD major depressive disorder along with borderline personality traits with a history of multiple inpatient hospitalizations currently reporting worsening depression with continued chronic PTSD symptoms that appear unabated. TO-15 minute checks Continue Effexor XR 225mg in am continue Seroquel 200mg at night to target PTSD symptoms, zyprexa prn 5mg for acute agitation Calamine lotion for poison clayton. Case management services necessary with psychotherapy for PTSD likely to be VERY helpful. Involuntary Hold Information 96 Hour Hold: 96 Hour Involuntary Admission: No Attestations NPU Medical Necessity Statement*: Psychiatric hospitalization is medically necessary to prevent access to lethal means, to reevaluate medication, and to coordinate a safe discharge.Patient's likely length of stay is 1-3 days. Coding Level of Care Code Established Pt Acute Chief Lifestyle Officer for [facility] F[facility] Patient Type Established History Problem Focused Exam Problem Focused Medical Decision Making Straight Forward Diagnoses Major depressive disorder, recurrent severe without psychotic features F33.2 PTSD (post-traumatic stress disorder) F43.10 Borderline personality disorder F60.3 COPD with asthma J44.9
[2022-05-14 18:20] VITALS: RESP 16; O2SAT 98
[2022-05-14 20:43] VITALS: BP 130/85; PULSE 66; RESP 18; TEMP 37; O2SAT 97
[2022-05-14] MEDS: quetiapine 100 mg Tablet 200 MG PO (21:01)
[2022-05-15] VITALS (7 sets, daily range): BP systolic 114–159; BP diastolic 71–89; PULSE 68–77; RESP 14–20; TEMP 36.4–37; O2SAT 96–99
[2022-05-15] MEDS: oxyCODONE-APAP 10-325 mg Tablet 1 TAB PO ×6 (02:48→22:57)
[2022-05-15] MEDS: nicotine 2 mg Gum BUCCAL ×8 (06:58→20:48)
[2022-05-15] MEDS: lisinopril 10 mg Tablet PO (08:46)
[2022-05-15] MEDS: simethicone 80 mg Chew PO (08:46)
[2022-05-15] MEDS: meloxicam 7.5 mg tablet 15 MG PO (08:46)
[2022-05-15] MEDS: metoprolol tartrate 50 mg Tablet 25 MG PO (08:46)
[2022-05-15] MEDS: venlafaxine ER (24HR) 75 mg Capsule 225 MG PO (08:46)
[2022-05-15] MEDS: methocarbamol 500 mg Tablet PO ×3 (08:47→20:49)
--- NOTE | 2022-05-15 16:35 | W.PM.NPUPNS ---
Subjective NPU Subjective: Patient presents today reporting that he is doing better and optimistic about the possibility for discharge tomorrow as his money should be on his card. He had a episode where he was triggered by patient was being aggressive towards other people earlier and he reports that he really gets frustrated with bullies but he ultimately kept it together. He discussed a plan to go to a retirement arranged by the treatment team. He reports the medications are working well and he looks forward to likely discharge in the morning. Medications: Medication Review Details: Is a well-nourished well-developed white male in hospital scrubs with appropriate grooming and eye contact. Significant tattooing on his exposed skin with almost complete tattooing on his bald head. No abnormal movements except for mild psychomotor agitation. Cooperative with exam in no acute distress. Speech was slightly increased rate and normal volume. Mood described as much better, affect euthymic. Thought process organized. Thought content: Patient denied suicidal or homicidal ideations, there were no delusions reported or noted, he denied any auditory or visual hallucinations. Attention and concentration are intact and memory appeared reliable but none were formally tested. He allegorical 3. Insight is improving judgment appears fair and impulse control is improving. Vitals/I&O/Wt Last Vital Signs Temp 98.6 F 05/15/22 20:41 Pulse 77 05/15/22 20:41 Resp 18 05/16/22 04:43 BP 159/89 05/15/22 20:41 Pulse Ox 99 05/16/22 04:43 O2 Del Method 05/15/22 20:41 A&P Assessment and plan (1) Major depressive disorder, recurrent severe without psychotic features: Status: Chronic (2) PTSD (post-traumatic stress disorder): Status: Chronic (3) Borderline personality disorder: Status: Chronic (4) COPD with asthma: Status: Chronic Plan The patient is a 36-year-old white male with a history of PTSD major depressive disorder along with borderline personality traits with a history of multiple inpatient hospitalizations currently reporting worsening depression with continued chronic PTSD symptoms that appear unabated. TO-15 minute checks Continue Effexor XR 225mg in am continue Seroquel 200mg at night to target PTSD symptoms, zyprexa prn 5mg for acute agitation Calamine lotion for poison clayton. Case management services necessary with psychotherapy for PTSD likely to be VERY helpful. Encourage individual, group and milieu therapies. Work with treatment team on discharge planning likely tomorrow. Involuntary Hold Information 96 Hour Hold: 96 Hour Involuntary Admission: No Attestations NPU Medical Necessity Statement*: Inpatient hospitalization is medically necessary and the clinically appropriate intervention at this time. We will monitor medication to make changes as indicated. Likely length of stay 1-2 days. Coding Level of Care Code Acute Cone Cleaner for [facility] Fwd Diagnoses Major depressive disorder, recurrent severe without psychotic features F33.2 PTSD (post-traumatic stress disorder) F43.10 Borderline personality disorder F60.3 COPD with asthma J44.9
[2022-05-15] MEDS: quetiapine 100 mg Tablet 200 MG PO (20:47)
[2022-05-16] VITALS (7 sets, daily range): BP systolic 107–110; BP diastolic 65–67; PULSE 67–68; RESP 16–20; TEMP 36.3–36.9; O2SAT 98–99
[2022-05-16] MEDS: oxyCODONE-APAP 10-325 mg Tablet 1 TAB PO ×5 (04:43→21:45)
[2022-05-16] MEDS: nicotine 2 mg Gum BUCCAL ×6 (04:48→21:48)
[2022-05-16] MEDS: lisinopril 10 mg Tablet PO (08:23)
[2022-05-16] MEDS: metoprolol tartrate 50 mg Tablet 25 MG PO (08:23)
[2022-05-16] MEDS: venlafaxine ER (24HR) 75 mg Capsule 225 MG PO (08:23)
[2022-05-16] MEDS: meloxicam 7.5 mg tablet 15 MG PO (08:24)
[2022-05-16] MEDS: methocarbamol 500 mg Tablet PO ×3 (08:24→21:49)
--- NOTE | 2022-05-16 13:48 | W.PM.NPUPNS ---
Subjective NPU Subjective: Patient presents today reporting that he is not doing well given the bad news about his deposit not being there and him needing to be discharged to a [facility]. He had a episode where he was agitated after the news was received. We discussed the plan tht he would go to [facility] and he reported he could not keep himself safe there. He reports the medications are working fine and he hopes he could be discharged on Thursday when they report his funds will be available. Mental Status Exam MSE Comments: Patient's casually dressed white male, appeared his stated age. He was upset about his money not being available and reporting he is not ready to leave. He was alert and oriented to person, place and time. His mood was described as upset his affect was labile and congruent His gait was normal. His hygiene was fair. His speech was normal in regards to rate rhythm and prosody, but increased rate and volume. His thought process was linear and logical and goal directed. His thought content showed no evidence of active homicidal ideation. he indorsed feeling suicidal about going to a [facility] and his money not being available. He is unable to contract for safety on interview. His recent and remote memory appeared intact. There was no clear evidence of delusional thinking. His insight was poor His judgment was poor. His impulse control appeared to be impaired. . Vitals/I&O/Wt Last Vital Signs Temp 98.4 F 05/16/22 06:00 Pulse 68 05/16/22 06:00 Resp 18 05/16/22 12:31 BP 110/65 05/16/22 06:00 Pulse Ox 98 05/16/22 06:00 O2 Del Method 05/16/22 06:00 A&P Assessment and plan (1) Major depressive disorder, recurrent severe without psychotic features: Status: Chronic (2) PTSD (post-traumatic stress disorder): Status: Chronic (3) Borderline personality disorder: Status: Chronic (4) COPD with asthma: Status: Chronic Plan The patient is a 36-year-old white male with a history of PTSD major depressive disorder along with borderline personality traits with a history of multiple inpatient hospitalizations currently reporting worsening depression with continued chronic PTSD symptoms that appear unabated. Continue Effexor XR 225mg in am continue Seroquel 200mg at night to target PTSD symptoms, zyprexa prn 5mg for acute agitation Calamine lotion for poison clayton. Case management services necessary with psychotherapy for PTSD likely to be VERY helpful. Encourage individual, group and milieu therapies. With the bad news and his reaction, we will increase to 1-1 observations and reevaluate for discharge tomorrow, but likely discharge thursday. Involuntary Hold Information 96 Hour Hold: 96 Hour Involuntary Admission: No Attestations NPU Medical Necessity Statement*: Inpatient hospitalization is medically necessary and the clinically appropriate intervention at this time. We will monitor medication to make changes as indicated. Likely length of stay 1-3 days. Coding Level of Care Code Acute Lagging Machine Operator for g Fwd Diagnoses Major depressive disorder, recurrent severe without psychotic features F33.2 PTSD (post-traumatic stress disorder) F43.10 Borderline personality disorder F60.3 COPD with asthma J44.9
[2022-05-16] MEDS: OLANZapine 5 mg ODT PO (13:57)
--- NOTE | 2022-05-16 13:58 | PC.NURSE ---
Patient verbally escalating. Yelling and cussing staff. States I'm going to hang myself. Patient has sheet tied up into a knot and puts sheet behind him. Patient is yelling at staff telling them to leave. Attempt to re direct without success. Olanzapine 5 mg sl given for this.
[2022-05-16] MEDS: quetiapine 100 mg Tablet 200 MG PO (21:45)
[2022-05-17] VITALS (9 sets, daily range): BP systolic 124–150; BP diastolic 72–92; PULSE 55–84; RESP 16–18; TEMP 36.3–36.4; O2SAT 95–98
[2022-05-17] MEDS: oxyCODONE-APAP 10-325 mg Tablet 1 TAB PO ×6 (00:57→20:39)
[2022-05-17] MEDS: nicotine 2 mg Gum BUCCAL ×6 (02:41→19:28)
[2022-05-17] MEDS: venlafaxine ER (24HR) 75 mg Capsule 225 MG PO (10:04)
[2022-05-17] MEDS: methocarbamol 500 mg Tablet PO ×3 (10:05→20:41)
[2022-05-17] MEDS: meloxicam 7.5 mg tablet 15 MG PO (10:05)
[2022-05-17] MEDS: metoprolol tartrate 50 mg Tablet 25 MG PO (10:06)
[2022-05-17] MEDS: lisinopril 10 mg Tablet PO (10:06)
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
[2022-05-17] MEDS: simethicone 80 mg Chew PO ×2 (17:28→20:41)
[2022-05-17] MEDS: benzocaine 20% 7 gm 1 APPLIC MUCOUS MEM (19:28)
[2022-05-17] MEDS: quetiapine 100 mg Tablet 200 MG PO (20:41)
[2022-05-18] VITALS (9 sets, daily range): BP systolic 103–148; BP diastolic 64–91; PULSE 69–86; RESP 16–22; TEMP 36.4–36.8; O2SAT 95–97; BMI 27.3
[2022-05-18] MEDS: oxyCODONE-APAP 10-325 mg Tablet 1 TAB PO ×5 (01:51→20:17)
[2022-05-18] MEDS: lisinopril 10 mg Tablet PO (08:11)
[2022-05-18] MEDS: metoprolol tartrate 50 mg Tablet 25 MG PO (08:11)
[2022-05-18] MEDS: benztropine 1 mg Tablet PO (08:11)
[2022-05-18] MEDS: methocarbamol 500 mg Tablet PO ×3 (08:11→20:17)
[2022-05-18] MEDS: venlafaxine ER (24HR) 75 mg Capsule 225 MG PO (08:11)
[2022-05-18] MEDS: meloxicam 7.5 mg tablet 15 MG PO (08:11)
[2022-05-18] MEDS: nicotine 2 mg Gum BUCCAL ×6 (08:12→21:59)
[2022-05-18] MEDS: simethicone 80 mg Chew PO ×2 (12:34→16:08)
--- NOTE | 2022-05-18 14:42 | PC.NURSE ---
around 1130 this shift patient came up to the nurses station upset over not getting snacks in a timely manner by WOOD GRINDER. Per WOOD GRINDER patient stated to her Fuck you, you are being a recio bitch. Discussed with patient extensively not to use inappropriate language and not to verbally abuse staff. Patient verbalized understanding.
[2022-05-18] MEDS: saline nasal spray 44mL Btl 1 SPRAY NASAL ×2 (16:22→20:43)
--- NOTE | 2022-05-18 17:40 | P.NPUPN_ITS ---
Subjective NPU Subjective: Patient presents today reporting that he called to verify he continues to not have the money on the account. We discussed the plan to work with the treatment team in the morning to either identify that resource or come up with an alternative. He continues to report instability making it so him going to any place without his money being a recipe for disaster. We will continue to discuss the importance of being able to manage himself but he does not want to end up incarcerated. Mental Status Exam MSE Comments: This is a well-nourished well-developed white male in hospital scrubs with appropriate grooming and limited eye contact.? Significant tattooing on his exposed skin with almost complete tattooing on his bald head.? No abnormal movements except for mild psychomotor agitation.? Cooperative with exam in no acute distress.? Speech was normal rate and volume.? Mood described as just anxious to get my money and move on, affect euthymic.? Thought process organized.? Thought content: Patient denied suicidal or homicidal ideations, there were no delusions reported or noted, he denied any auditory or visual hallucinations.? Attention and concentration are intact and memory appeared re liable but none were formally tested.? He is alert and oriented x 3.? Insight is limited, judgment appears improving and impulse control is limited. Vitals/I&O/Wt Last Vital Signs Temp 97.5 F L 05/18/22 20:23 Pulse 86 05/18/22 20:23 Resp 16 05/18/22 20:23 BP 148/91 05/18/22 20:23 Pulse Ox 95 05/18/22 20:23 O2 Del Method 05/18/22 20:23 Weight last 48 hrs Weight 81.556 kg A&P Assessment and plan (1) Major depressive disorder, recurrent severe without psychotic features: Status: Chronic (2) PTSD (post-traumatic stress disorder): Status: Chronic (3) Borderline personality disorder: Status: Chronic (4) COPD with asthma: Status: Chronic Plan The patient is a 36-year-old white male with a history of PTSD major depressive disorder along with borderline personality traits with a history of multiple inpatient hospitalizations currently reporting worsening depression with continued chronic PTSD symptoms that appear unabated. Continue Effexor XR 225mg in am continue Seroquel 200mg at night to target PTSD symptoms, zyprexa prn 5mg for acute agitation Calamine lotion for poison clayton. Case management services necessary with psychotherapy for PTSD likely to be VERY helpful. Encourage individual, group and milieu therapies. We will continue 1-1 observations and reevaluate for discontinuation. Likely discharge thursday. Involuntary Hold Information 96 Hour Hold: 96 Hour Involuntary Admission: No Attestations NPU Medical Necessity Statement*: Inpatient hospitalization is medically necessary and the clinically appropriate intervention at this time. We will monitor medication to make changes as indicated. Likely length of stay 1-2 days. Coding Level of Care Code Acute Diesel Dragline Operator for g Fwd Diagnoses Major depressive disorder, recurrent severe without psychotic features F33.2 PTSD (post-traumatic stress disorder) F43.10 Borderline personality disorder F60.3 COPD with asthma J44.9
[2022-05-18] MEDS: quetiapine 100 mg Tablet 200 MG PO (20:17)
--- NOTE | 2022-05-18 20:56 | NUR.SHIFT ---
PT PRESENTS IRRITABLE BUT COOPERATIVE. PT REPORTS MY ANXIETY IS SUPER HIGH BECAUSE OF THE TECH. SHE WANTS TO BOSS EVERYONE AROUND AND BE IN CHARGE OF EVERYONE AND TALK DOWN TO US PATIENTS AND LIE ON US. PT ABLE TO BE REDIRECTED AND ENCOURAGE TO FOCUS ON NOW AND HIS EMOTIONS NOW. PT VERBALIZED UNDERSTANDING OF NEED TO CONTROL HIS OWN ACTIONS AND REACTIONS, BUT STILL HYPERFOCUSED ON THIS SITUATION THAT HAPPENED THIS AFTERNOON. PT CLEANING TO REDUCE ANXIETY ALLOWED TO USE WASH CLOTH AND WIPE DOWN AREAS. PT REPORTS CHRONIC SI STATING, I ALWAYS THINK ABOUT IT, BUT WOULD NEVER DO IT HERE. . REPORTS MOOD IS ANXIOUS DENIES HI/AVH AT THIS TIME. REPORTS ANXIETY / AND DEPRESSION /. PT CONTRACTED FOR SAFETY, STATING, I'M LOOKING FORWARD TO GETTING OUT OF HERE AND GETTING A HOTEL AND SEE IF I CAN GET A PLACE AT THE HEIGHTS. Q15 MIN SAFETY CHECKS CONTINUED IN [place].
[2022-05-19 00:39] VITALS: RESP 20
[2022-05-19] MEDS: oxyCODONE-APAP 10-325 mg Tablet 1 TAB PO ×4 (00:39→13:25)
[2022-05-19] MEDS: saline nasal spray 44mL Btl 1 SPRAY NASAL (00:48)
[2022-05-19 06:00] VITALS: BP 144/93; PULSE 80; RESP 17; TEMP 36.9; O2SAT 93
[2022-05-19 06:17] VITALS: RESP 20
[2022-05-19] MEDS: nicotine 2 mg Gum BUCCAL ×4 (06:18→13:25)
[2022-05-19 09:32] LABS: Bilirubin Urine Neg (Negative); Blood Urine 2+ (Negative); Glucose Urine UA Norm (Normal); Ketones Urine Negative (Negative); Leukocyte Esterase Urine 2+ (Negative); Nitrate Urine Negative (Negative); Protein Urine Neg (Negative); Urine Appearance SL Hazy (CLEAR); Urine Color Yellow (Yellow); Urobilinogen Urine Norm (Negative); pH Urine 5 (5-7)
[2022-05-19 09:33] LABS: Add Urine Culture? Yes; Bacteria Urine TRACE /hpf; RBC Urine RARE /hpf (0-2); WBC Urine 40-55 /hpf (0-5)
[2022-05-19] MEDS: meloxicam 7.5 mg tablet 15 MG PO (09:44)
[2022-05-19] MEDS: methocarbamol 500 mg Tablet PO (09:44)
[2022-05-19] MEDS: venlafaxine ER (24HR) 75 mg Capsule 225 MG PO (09:45)
[2022-05-19] MEDS: lisinopril 10 mg Tablet PO (09:45)
[2022-05-19] MEDS: metoprolol tartrate 50 mg Tablet 25 MG PO (09:45)
[2022-05-19 09:48] VITALS: RESP 16
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
--- NOTE | 2022-05-19 11:57 | PC.NURSE ---
Medications called to [facility] to pharmacist Brenda. Pharmacist will cancel medications at [facility].
[2022-05-19 12:07] VITALS: RESP 16
[2022-05-19 13:25] VITALS: RESP 16
== END 2022-05-19 14:01 | disposition home or self-care (01) | DRG 885 ==
PROVIDERS: Psychiatry & Neurology Psychiatry; Admitting Provider Psychiatry & Neurology Psychiatry; Visit Provider Psychiatry & Neurology Psychiatry
DX: F33.2 Major depressive disorder, recurrent severe without psychotic features (principal); R45.851 Suicidal ideations; F15.90 Other stimulant use, unspecified, uncomplicated; G89.29 Other chronic pain; F43.12 Post-traumatic stress disorder, chronic; F60.3 Borderline personality disorder; J44.9 Chronic obstructive pulmonary disease, unspecified
CPT/HCPCS: 81001; 87086; 87491; 87591; 97150; 97165

== ENCOUNTER 2022-05-21 19:23 | Emergency (ER) | payer MEDICAID, SELFPAY ==
--- NOTE | 2022-05-21 19:43 | W.ED.MALEGU ---
HPI - Male Genitourinary General: Stated complaint: Wants to be tested for STD's Time Seen by Provider: 05/21/22 19:38 Source: patient Mode of arrival: ambulatory Limitations: no limitations History of Present Illness: 36-year male states he is concerned he may have an STD. He states that he is sexually active and states that he has been having milky white discharge along with dysuria. He denies any testicle pain denies any penile lesions denies any fevers or vomiting. Associated symptoms: Reports dysuria; Deny nausea or vomiting Review of Systems Const: Denies: fever(s), chills, body aches or change in appetite Eyes: Denies: blurry vision or eye discomfort ENMT: Denies: throat pain or dental pain Card: Denies: chest pain Resp: Denies: dyspnea GI: Denies: abdominal pain, nausea, vomiting or diarrhea : Reports: dysuria and penile discharge Musc: Denies: neck pain or back pain Skin/Breast: Denies: rash Neuro: Denies: headache(s) Psych: Denies: depression Robert/Lymph: Denies: easy bruising All/Imm: Denies: urticaria PFSH ED PFSH: Medical History COPD with asthma Family history of suicide FATHER COMMITTED SUICIDE 2017 Suicide attempt by hanging LAST ATTEMPT 04/2021 Family History Father Suicide Sociopathic personality disorder Drug abuse Alcohol abuse Mother Bipolar disorder Drug abuse Physical Exam Const: COMMON NORMALS: no acute distress, patient oriented x3 and healthy appearing HENMT: COMMON NORMALS: normocephalic and atraumatic HEAD & SCALP: normocephalic and atraumatic Eye: COMMON NORMALS: conjunctivae normal CONJUNCTIVA: Yes conjunctivae normal Neck/C-Spine: COMMON NORMALS: full ROM and supple Chest: COMMONS NORMALS: normal inspection of the chest Resp: COMMON NORMALS: normal respiratory effort Cardio: COMMON NORMALS: regular rate and No murmurs present (Cardio) RATE: regular rate GI: INSPECTION: Yes normal to inspection Extremity: COMMON NORMALS: normal to inspection Neuro: COMMON NORMALS: patient oriented x3, moves all extremities and no focal motor deficits Psych: COMMON NORMALS: mental status grossly normal, Normal thought process present and cooperative THOUGHT PROCESS: Normal thought process present Skin: COMMON NORMALS: no rashes or lesions noted and no wounds GENERAL SKIN EXAM: no rashes or lesions noted MDM - Male Medical Decision Making Patient presents here with likely STD we will send urine off for gonorrhea chlamydia we will go ahead and treat in the ER with Rocephin azithromycin he has no testicle pain or lesions he is to follow-up with PCP and return if worsening he understands agrees to plan. Discharge Plan Discharge Patient Disposition: Home Clinical Impression: Concern about STD in male without diagnosis Condition: Stable Prescriptions: No Action venlafaxine 75 mg Capsule,Extended Release 24hr 225 mg PO DAILY 30 Days Qty: 90 1RF quetiapine 100 mg Tablet 200 mg PO BEDTIME 30 Days Qty: 60 1RF oxycodone-acetaminophen 10-325 mg Tablet 1 tab PO 3XD 21 Days Qty: 42 0RF Rx Instructions: 3 times a day 1 week, 2 times a day 1 week, daily for a week then discontinue methocarbamol 500 mg Tablet 500 mg PO TID 30 Days Qty: 90 1RF meloxicam 15 mg Tablet 15 mg PO DAILY 30 Days Qty: 30 1RF lisinopril 10 mg Tablet 10 mg PO DAILY 30 Days Qty: 30 1RF Lopressor 50 mg tablet 25 mg PO DAILY 30 Days Qty: 15 1RF oxycodone-acetaminophen 10-325 mg tablet 1 tab PO Q8H PRN (Reason: pain) 21 Days Qty: 42 0RF Rx Instructions: 3 times a day 1 week, then twice a day 1 week, then daily 1 week, then dc Discharge Orders: Discharge ED (Routine); Ordered 05/21/22 Ordered By: Darby Rivas Discharge Diet: Advance as tolerated Discharge Activity: Resume usual activity Patient Instructions: Sexually Transmitted Diseases (ED) Coding Level of Care Code ED Loft Worker Head for Madie Potts
[2022-05-21 19:48] VITALS: BP 129/84; PULSE 98; RESP 16; TEMP 36.9; O2SAT 96; BMI 27.6
[2022-05-21 20:22] LABS: Add Urine Microscopic? NO; Charge for UA Resulting for Rev
[2022-05-21 20:25] LABS: Bilirubin Urine Neg (Negative); Blood Urine Neg (Negative); Glucose Urine UA Norm (Normal); Ketones Urine Negative (Negative); Leukocyte Esterase Urine Negative (Negative); Nitrate Urine Negative (Negative); Protein Urine Neg (Negative); Specific Gravity, Urine 1.025 (1.005-1.030); Urine Appearance Clear (CLEAR); Urine Color Yellow (Yellow); Urobilinogen Urine Norm (Negative); pH Urine 5 (5-7)
[2022-05-21] MEDS: azithromycin 250 mg Tablet 1000 MG PO (21:14)
== END 2022-05-21 21:42 | disposition home or self-care (01) ==
PROVIDERS: Emergency Provider Emergency Medicine
DX: Z20.2 Contact with and (suspected) exposure to infections with a predominantly sexual mode of transmission (principal); J44.9 Chronic obstructive pulmonary disease, unspecified
CPT/HCPCS: 81003; 87491; 87591; 99284; J0696; Q0144

== ENCOUNTER 2022-05-22 10:34 | Emergency (ER) | payer MEDICAID, SELFPAY ==
[2022-05-22 10:50] VITALS: BP 166/99; PULSE 99; RESP 18; TEMP 36.8; O2SAT 97; BMI 27.6
--- NOTE | 2022-05-22 10:55 | ED.C_ITS ---
Documented by User: COLIN Rincon 05/22/22 18:04 HPI - Psych General: Chief Complaint: Psychiatric Symptoms Stated Complaint: si Time Seen by Provider: 05/22/22 10:48 History of Present Illness: Patient is a 36-year-old male comes to the ED with SI. Patient has a history of SI, PTSD and borderline personality disorder. Patient was discharged from the and NPU here at [facility] on May 19. He has had past SI attempts before. Patient is homeless and reports having worsening thoughts of suicide. He endorses having a plan to hang himself. Associated symptoms: Reports suicidal ideation Review of Systems Const: Denies: fever(s), chills or fatigue Eyes: Denies: change in vision or eye discomfort ENMT: Denies: throat pain, odynophagia, nasal discharge or nasal congestion Card: Denies: chest pain, palpitations, edema, swelling of feet/ankles, dyspnea on exertion or orthopnea Resp: Denies: dyspnea, productive cough or non-productive cough GI: Denies: abdominal pain, nausea, vomiting, diarrhea, constipation or hematochezia : Denies: flank pain, difficulty urinating, dysuria or hematuria Musc: Denies: neck pain, back pain or extremity swelling Skin/Breast: Denies: rash or new lesions Neuro: Denies: headache(s), numbness in extremities or weakness in extremities Psych: Reports: anxiety and suicidal ideation [facility] ED PFSH: Medical History COPD with asthma Family history of suicide FATHER COMMITTED SUICIDE 2017 Suicide attempt by hanging LAST ATTEMPT 04/2021 Family History Father Suicide Sociopathic personality disorder Drug abuse Alcohol abuse Mother Bipolar disorder Drug abuse Physical Exam Const: COMMON NORMALS: patient oriented x3 and alert GENERAL APPEARANCE: cooperative HENMT: COMMON NORMALS: normocephalic HEAD & SCALP: normocephalic MOUTH: Normal oral and palatal mucosa present THROAT: posterior oropharynx normal and uvula midline Neck/C-Spine: COMMON NORMALS: supple GENERAL: Yes normal visual inspection Resp: COMMON NORMALS: normal respiratory effort, No retractions, No use of accessory muscles and clear to auscultation bilaterally AUSCULTATION: clear to auscultation bilaterally Cardio: COMMON NORMALS: regular rate, regular rhythm, S1 normal heart sound present, S2 normal heart sound present, No gallops present (Cardio), No clicks present (Cardio), No murmurs present (Cardio) and Peripheral pulses 2+ throughout RATE: regular rate RHYTHM: regular rhythm HEART SOUNDS: S1 normal heart sound present and S2 normal heart sound present PERIPHERAL PULSES: Peripheral pulses 2+ throughout GI: COMMON NORMALS: Normal to inspection, nondistended, normoactive bowel sounds present, Soft to palpation, non-tender and no masses PALPATION: Yes Soft to palpation : COMMON NORMALS: Yes no CVA tenderness BLADDER/KIDNEY EXAM: Yes no CVA tenderness Back/Pelvis: COMMON NORMALS: no CVA tenderness Extremity: COMMON NORMALS: normal to inspection Neuro: COMMON NORMALS: patient oriented x3 SENSORIUM/ORIENTATION: Yes alert GAIT: Yes Normal gait present Skin: GENERAL SKIN EXAM: dry skin Course Consultations: Consultation #1: I contacted Dr. Rodriguez and he was aware of patient and wanted to come down and talk with patient here in the ED for psych eval. After Dr. Rodriguez talked with patient he came and spoke with me and told me that patient does not need to be admitted to the NPU and that his current situation is likely tied to his current finances and being homeless. He told me to have patient discharged here from the ED. Time: 16:00 Vital Signs: Vital signs: Vital Signs Temperature 98.3 F 05/22/22 10:50 Pulse Rate 99 05/22/22 10:50 Respiratory Rate 18 05/22/22 10:50 Blood Pressure 166/99 05/22/22 10:50 Pulse Oximetry 97 05/22/22 10:50 Oxygen Delivery Me thod 05/22/22 10:50 [facility] - Psych Medical Decision Making Patient is a 36-year-old male comes to the ED with SI. Patient has a history of borderline personality disorder, PTSD and major depressive disorder. Patient has a history of SI, PTSD and borderline personality disorder. Patient was discharged from the and NPU here at [facility] on May 19. Vitals are stable. Patient appears nontoxic and in no acute distress or pain. I contacted Dr. Rodriguez and he was familiar with the patient case. He came down and talked with patient here in the ED. Dr. Albright came and talk to me and told me patient is not need to be admitted to the psych unit and can be discharged home. He said patient's problems are more related to him having some financial problems and being homeless. Patient was cleared for discharge home and diagnosed with borderline personality disorder. I also informed patient that his lab from yesterday came back positive for gonorrhea. Patient has already received full treatment for gonorrhea yesterday in the ED and does not need any further treatment. Follow-up with PCP in the next week for reevaluation. Return to ED precautions given. Patient understood and agreed with plan. Lab Data I reviewed the patient's lab results. : 05/22/22 11:05 05/22/22 11:05 Laboratory Results WBC 8.8 10^3/uL (4.0-10.0) 05/22/22 11:05 RBC 5.27 10^6/uL (4.1-5.3) 05/22/22 11:05 Hgb 15.7 g/dL (11.7-16.6) 05/22/22 11:05 Hct 47.2 % (42.0-52.0) 05/22/22 11:05 MCV 89.6 fl (80-94) 05/22/22 11:05 MCH 29.8 pg (28.0-34.0) 05/22/22 11:05 MCHC 33.3 g/dL (30.0-36.0) 05/22/22 11:05 RDW 12.8 % (12.1-15.1) 05/22/22 11:05 Plt Count 317 10^3/cmm (130-400) 05/22/22 11:05 MPV 8.7 fL (7.4-10.4) 05/22/22 11:05 Neut % (Auto) 58.8 % 05/22/22 11:05 Lymph % (Auto) 27.1 % 05/22/22 11:05 Lyman % (Auto) 10.2 % 05/22/22 11:05 Eos % (Auto) 2.6 % 05/22/22 11:05 Baso % (Auto) 0.5 % 05/22/22 11:05 Neut # (Auto) 5.15 10^3/uL (1.8-7.7) 05/22/22 11:05 Lymph # (Auto) 2.4 10^3/uL (0.8-4.8) 05/22/22 11:05 Lyman # (Auto) 0.9 10^3/uL (0.2-0.9) 05/22/22 11:05 Eos # (Auto) 0.2 10^3/uL (0.0-0.8) 05/22/22 11:05 Baso # (Auto) 0.0 10^3/uL (0.0-0.1) 05/22/22 11:05 Nucleated RBC % (auto) 0 % 05/22/22 11:05 Nucleated RBCs # 0.0 /100WBC 05/22/22 11:05 Sodium 137 mmol/L (136-145) 05/22/22 11:05 Potassium 4.7 mmol/L (3.5-5.1) 05/22/22 11:05 Chloride 96 mmol/L (98-107) L 05/22/22 11:05 Carbon Dioxide 29 mmol/L (22-29) 05/22/22 11:05 Anion Gap 16.7 (5-19) 05/22/22 11:05 BUN 25 mg/dL (6-20) H 05/22/22 11:05 Creatinine 1.2 mg/dL (0.7-1.2) 05/22/22 11:05 GFR Calculation 68.5 mL/min (90-130) L 05/22/22 11:05 Glucose 99 mg/dL (65-115) 05/22/22 11:05 Calculated Osmolality 288 mOsm/kg (285-295) 05/22/22 11:05 Calcium 12.3 mg/dL (8.5-10.5) H 05/22/22 11:05 Total Bilirubin 0.4 mg/dL (0.15-1.2) 05/22/22 11:05 AST 48 U/L (0-40) H 05/22/22 11:05 ALT 58 U/L (0-41) H 05/22/22 11:05 Alkaline Phosphatase 122 U/L (40-130) 05/22/22 11:05 Total Protein 7.6 g/dL (6.6-8.7) 05/22/22 11:05 Albumin 4.5 g/dL (3.5-5.2) 05/22/22 11:05 Globulin 3.1 g/dL (1.3-4.6) 05/22/22 11:05 Salicylates < 0.3 mg/dL (3-10) L 05/22/22 11:05 Acetaminophen < 5.0 ug/mL (10-30) L 05/22/22 11:05 Ethyl Alcohol < 10 mg/dL (0-10) 05/22/22 11:05 Discharge Plan Discharge Patient Disposition: Home Clinical Impression: Borderline personality disorder Condition: Stable Prescriptions: No Action venlafaxine 75 mg Capsule,Extended Release 24hr 225 mg PO DAILY 30 Days Qty: 90 1RF quetiapine 100 mg Tablet 200 mg PO BEDTIME 30 Days Qty: 60 1RF methocarbamol 500 mg Tablet 500 mg PO TID 30 Days Qty: 90 1RF meloxicam 15 mg Tablet 15 mg PO DAILY 30 Days Qty: 30 1RF lisinopril 10 mg Tablet 10 mg PO DAILY 30 Days Qty: 30 1RF metoprolol tartrate [Lopressor] 50 mg tablet 25 mg PO DAILY 30 Days Qty: 15 1RF oxycodone-acetaminophen 10-325 mg tablet 1 tab PO Q8H PRN (Reason: pain) 21 Days Qty: 42 0RF Rx Instructions: 3 times a day 1 week, then twice a day 1 week, then daily 1 week, then dc sulfamethoxazole-trimethoprim 800-160 mg tablet 1 tab PO BID biotin 10 mg Tablet 10 mg PO DAILY Probiotic 4X 10-15 mg Tablet,Delayed Release (Dr/Ec) 1 tab PO DAILY Discharge Orders: Discharge ED (Routine); Ordered 05/22/22 Ordered By: Gurinder Wayne Discharge Diet: Regular Discharge Activity: Increase activity as tolerated Activity Restrictions/Additional Instructions: Follow-up with medical provider as directed. Take medications as prescribed. Return to the ER or your medical provider if condition worsens. Please read and understand discharge instructions. Thank you for choosing [facility] for your healthcare needs today. Please realize this is an emergency room and that we are providing you with a medical screening exam and this may not be complete and all inclusive of all the testing and or work up that you may need to determine your ailment or severity of your illness. It is very important that you follow up as instructed or that you return to the Emergency Department should you have concerns or if your condition changes or worsens in any way. Coding Level of Care Code ED Database Administration Associate for Chg Fwd Exam Comprehensive Documented by User: Ankit Espinoza DO 05/23/22 10:44 HPI - Psych General: Chief Complaint: Psychiatric Symptoms Stated Complaint: si Time Seen by Provider: 05/22/22 10:48 PFSH ED PFSH: Medical History COPD with asthma Family history of suicide FATHER COMMITTED SUICIDE 2017 Suicide attempt by hanging LAST ATTEMPT 04/2021 Family History Father Suicide Sociopathic personality disorder Drug abuse Alcohol abuse Mother Bipolar disorder Drug abuse Course Vital Signs: Vital signs: Vital Signs Temperature 98.3 F 05/22/22 10:50 Pulse Rate 99 05/22/22 10:50 Respiratory Rate 18 05/22/22 10:50 Blood Pressure 166/99 05/22/22 10:50 Pulse Oximetry 97 05/22/22 10:50 Oxygen Delivery Me thod 05/22/22 10:50 MDM - Psych Medical Decision Making Patient is a 36-year-old male comes to the ED with SI. Patient has a history of borderline personality disorder, PTSD and major depressive disorder. Patient has a history of SI, PTSD and borderline personality disorder. Patient was discharged from the and NPU here at [facility] on May 19. Vitals are stable. Patient appears nontoxic and in no acute distress or pain. I contacted Dr. Rodriguez and he was familiar with the patient case. He came down and talked with patient here in the ED. Dr. Albright came and talk to me and told me p atient is not need to be admitted to the psych unit and can be discharged home. He said patient's problems are more related to him having some financial problems and being homeless. Patient was cleared for discharge home and diagnosed with borderline personality disorder. I also informed patient that his lab from yesterday came back positive for gonorrhea. Patient has already received full treatment for gonorrhea yesterday in the ED and does not need any further treatment. Follow-up with PCP in the next week for reevaluation. Return to ED precautions given. Patient understood and agreed with plan. Chart reviewed and patient discussed with midlevel. Agree with assessment and plan. Discussed with Dr. Rodriguez and with Gurinder Wayne. Lab Data : 05/22/22 11:05 05/22/22 11:05 Laboratory Results WBC 8.8 10^3/uL (4.0-10.0) 05/22/22 11:05 RBC 5.27 10^6/uL (4.1-5.3) 05/22/22 11:05 Hgb 15.7 g/dL (11.7-16.6) 05/22/22 11:05 Hct 47.2 % (42.0-52.0) 05/22/22 11:05 MCV 89.6 fl (80-94) 05/22/22 11:05 MCH 29.8 pg (28.0-34.0) 05/22/22 11:05 MCHC 33.3 g/dL (30.0-36.0) 05/22/22 11:05 RDW 12.8 % (12.1-15.1) 05/22/22 11:05 Plt Count 317 10^3/cmm (130-400) 05/22/22 11:05 MPV 8.7 fL (7.4-10.4) 05/22/22 11:05 Neut % (Auto) 58.8 % 05/22/22 11:05 Lymph % (Auto) 27.1 % 05/22/22 11:05 Lyman % (Auto) 10.2 % 05/22/22 11:05 Eos % (Auto) 2.6 % 05/22/22 11:05 Baso % (Auto) 0.5 % 05/22/22 11:05 Neut # (Auto) 5.15 10^3/uL (1.8-7.7) 05/22/22 11:05 Lymph # (Auto) 2.4 10^3/uL (0.8-4.8) 05/22/22 11:05 Lyman # (Auto) 0.9 10^3/uL (0.2-0.9) 05/22/22 11:05 Eos # (Auto) 0.2 10^3/uL (0.0-0.8) 05/22/22 11:05 Baso # (Auto) 0.0 10^3/uL (0.0-0.1) 05/22/22 11:05 Nucleated RBC % (auto) 0 % 05/22/22 11:05 Nucleated RBCs # 0.0 /100WBC 05/22/22 11:05 Sodium 137 mmol/L (136-145) 05/22/22 11:05 Potassium 4.7 mmol/L (3.5-5.1) 05/22/22 11:05 Chloride 96 mmol/L (98-107) L 05/22/22 11:05 Carbon Dioxide 29 mmol/L (22-29) 05/22/22 11:05 Anion Gap 16.7 (5-19) 05/22/22 11:05 BUN 25 mg/dL (6-20) H 05/22/22 11:05 Creatinine 1.2 mg/dL (0.7-1.2) 05/22/22 11:05 GFR Calculation 68.5 mL/min (90-130) L 05/22/22 11:05 Glucose 99 mg/dL (65-115) 05/22/22 11:05 Calculated Osmolality 288 mOsm/kg (285-295) 05/22/22 11:05 Calcium 12.3 mg/dL (8.5-10.5) H 05/22/22 11:05 Total Bilirubin 0.4 mg/dL (0.15-1.2) 05/22/22 11:05 AST 48 U/L (0-40) H 05/22/22 11:05 ALT 58 U/L (0-41) H 05/22/22 11:05 Alkaline Phosphatase 122 U/L (40-130) 05/22/22 11:05 Total Protein 7.6 g/dL (6.6-8.7) 05/22/22 11:05 Albumin 4.5 g/dL (3.5-5.2) 05/22/22 11:05 Globulin 3.1 g/dL (1.3-4.6) 05/22/22 11:05 Salicylates < 0.3 mg/dL (3-10) L 05/22/22 11:05 Acetaminophen < 5.0 ug/mL (10-30) L 05/22/22 11:05 Ethyl Alcohol < 10 mg/dL (0-10) 05/22/22 11:05 Discharge Plan Discharge Patient Disposition: Home Clinical Impression: Borderline personality disorder Condition: Stable Prescriptions: No Action venlafaxine 75 mg Capsule,Extended Release 24hr 225 mg PO DAILY 30 Days Qty: 90 1RF quetiapine 100 mg Tablet 200 mg PO BEDTIME 30 Days Qty: 60 1RF methocarbamol 500 mg Tablet 500 mg PO TID 30 Days Qty: 90 1RF meloxicam 15 mg Tablet 15 mg PO DAILY 30 Days Qty: 30 1RF lisinopril 10 mg Tablet 10 mg PO DAILY 30 Days Qty: 30 1RF metoprolol tartrate [Lopressor] 50 mg tablet 25 mg PO DAILY 30 Days Qty: 15 1RF oxycodone-acetaminophen 10-325 mg tablet 1 tab PO Q8H PRN (Reason: pain) 21 Days Qty: 42 0RF Rx Instructions: 3 times a day 1 week, then twice a day 1 week, then daily 1 week, then dc sulfamethoxazole-trimethoprim 800-160 mg tablet 1 tab PO BID biotin 10 mg Tablet 10 mg PO DAILY Probiotic 4X 10-15 mg Tablet,Delayed Release (Dr/Ec) 1 tab PO DAILY Discharge Orders: Discharge ED (Routine); Ordered 05/22/22 Ordered By: Gurinder Wayne Discharge Diet: Regular Discharge Activity: Increase activity as tolerated Activity Restrictions/Additional Instructions: Follow-up with medical provider as directed. Take medications as prescribed. Return to the ER or your medical provider if condition worsens. Please read and understand discharge instructions. Thank you for choosing [facility] for your healthcare needs today. Please realize this is an emergency room and that we are providing you with a medical screening exam and this may not be complete and all inclusive of all the testing and or work up that you may need to determine your ailment or severity of your illness. It is very important that you follow up as instructed or that you return to the Emergency Department should you have concerns or if your condition changes or worsens in any way. Coding Level of Care Code ED Database Administration Associate for Madie Fwliliana Exam Comprehensive
[2022-05-22 11:10] LABS: Basophils % 0.5 %; Eosinophils # 0.2 10^3/uL (0.0-0.8); Eosinophils % 2.6 %; Hematocrit 47.2 % (42.0-52.0); Hemoglobin 15.7 g/dL (11.7-16.6); Lymphocytes # 2.4 10^3/uL (0.8-4.8); Lymphocytes % 27.1 %; Mean Corpuscular HGB Conc 33.3 g/dL (30.0-36.0); Mean Corpuscular Hemoglobin 29.8 pg (28.0-34.0); Mean Corpuscular Volume 89.6 fl (80-94); Mean Platelet Volume 8.7 fL (7.4-10.4); Monocytes # 0.9 10^3/uL (0.2-0.9); Monocytes % 10.2 %; Neutrophils # 5.15 10^3/uL (1.8-7.7); Neutrophils % 58.8 %; Nucleated Red Blood Cells % 0 %; Platelet Count 317 10^3/cmm (130-400); Red Blood Count 5.27 10^6/uL (4.1-5.3); Red Cell Distribution Width 12.8 % (12.1-15.1); White Blood Count 8.8 10^3/uL (4.0-10.0)
[2022-05-22 11:39] LABS: Alanine Aminotransferase 58 U/L (0-41); Albumin Level 4.5 g/dL (3.5-5.2); Alkaline Phosphatase 122 U/L (40-130); Anion Gap 16.7 (5-19); Aspartate Amino Transferase 48 U/L (0-40); Blood Urea Nitrogen 25 mg/dL (6-20); Calcium 12.3 mg/dL (8.5-10.5); Carbon Dioxide 29 mmol/L (22-29); Chloride 96 mmol/L (98-107); Globulin 3.1 g/dL (1.3-4.6); Glomerular Filtration Rate 68.5 mL/min (90-130); Glucose 99 mg/dL (65-115); Osmolality Calculated 288 mOsm/kg (285-295); Potassium 4.7 mmol/L (3.5-5.1); Sodium 137 mmol/L (136-145); Total Bilirubin 0.4 mg/dL (0.15-1.2); Total Protein 7.6 g/dL (6.6-8.7)
[2022-05-22 11:42] LABS: Acetaminophen < 5.0 ug/mL (10-30); Alcohol Level < 10 mg/dL (0-10); Salicylate < 0.3 mg/dL (3-10)
== END 2022-05-22 16:13 | disposition home or self-care (01) ==
PROVIDERS: Emergency Provider Physician Assistant
DX: F60.3 Borderline personality disorder (principal); J44.9 Chronic obstructive pulmonary disease, unspecified
CPT/HCPCS: 36415; 80053; 80307; 85025; 99283

== ENCOUNTER 2022-05-22 16:50 | Emergency (ER) | payer MEDICAID, SELFPAY ==
[2022-05-22 17:06] VITALS: BP 137/90; PULSE 66; RESP 18; TEMP 37.1; O2SAT 98
[2022-05-22 17:20] VITALS: BP 137/92; PULSE 70; O2SAT 98
--- NOTE | 2022-05-22 17:29 | ECG_ITS ---
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 Measurements Intervals [place] Rate: 67 P: 55 TX: 162 QRS: -3 QRSD: 113 T: 22 QT: 367 QTc: 387 Interpretive Statements SINUS RHYTHM MODERATE INTRAVENTRICULAR CONDUCTION DELAY [110+ ms QRS DURATION] No previous ECG available for comparison Electronically Signed On 05-22-2022 22:48:52 CDT by Mary Anthony M.D. [id number]
--- NOTE | 2022-05-22 17:32 | ED_ITS ---
Documented by User: Ankit Espinoza DO 05/23/22 10:45 HPI - Overdose General: Chief Complaint: Overdose Stated Complaint: overdose Time Seen by Provider: 05/22/22 17:01 Source: patient Mode of arrival: ambulatory History of Present Illness: 36-year-old male was recently hospitalized here in [facility] subsequently after being discharged she returned earlier today complaining of suicidal ideation. He was malingering with attempts at secondary gain attempting to get admitted because he did not not have anywhere else to go and wanted to avoid having to go to a long-term sleeping on the street. He psychiatry was consulted and they did not feel he needed to be admitted. Patient was upset with this symptom as he was discharged he reports that he took 30 tablets of metoprolol and also took 42 tablets of oxycodone. All of his other medications are in his bag and are appropriately accounted for. He immediately after taking them return to the emergency room stating he taken the medications at night now we would be forced to admit him. MD complaint: intentional overdose Onset (ago): minute(s) Intent: unwilling to say How Overdose Was Discovered: other (Patient intentionally overdosed then immediately presented to the emergency room demanding admission) Context: Intentional Overdose: financial issues Context: Accidental Overdose: other (Took overdose of for secondary gain of hospital admission) Treatments Prior to Arrival: none Review of Systems Const: Denies: fever(s), chills, body aches, change in appetite, fatigue or malaise ENMT: Denies: throat pain, ear or mastoid pain, nasal discharge or nasal congestion Card: Denies: chest pain, edema, dyspnea on exertion or orthopnea Resp: Denies: dyspnea, productive cough or non-productive cough GI: Denies: abdominal pain, nausea, vomiting, hematemesis, coffee ground emesis, diarrhea, constipation, bloating, hematochezia or melena : Denies: flank pain, dysuria, urinary frequency or urinary urgency Skin/Breast: Denies: rash or pruritus [facility] ED PFSH: Medical History COPD with asthma Family history of suicide FATHER COMMITTED SUICIDE 2017 Suicide attempt by hanging LAST ATTEMPT 04/2021 Family History Father Suicide Sociopathic personality disorder Drug abuse Alcohol abuse Mother Bipolar disorder Drug abuse Physical Exam Const: COMMON NORMALS: no acute distress GENERAL APPEARANCE: comfortable ORIENTATION/CONSCIOUSNESS: Yes awake, Yes oriented to person, Yes oriented to place and Yes oriented to time HENMT: COMMON NORMALS: normocephalic, atraumatic and hearing grossly normal bilaterally HEAD & SCALP: normocephalic and atraumatic Neck/C-Spine: COMMON NORMALS: full ROM, no lymphadenopathy, supple and no JVD Resp: COMMON NORMALS: normal respiratory effort, No retractions, No use of accessory muscles and clear to auscultation bilaterally AUSCULTATION: clear to auscultation bilaterally Cardio: COMMON NORMALS: no JVD, regular rhythm and No murmurs present (Cardio) RATE: bradycardic RHYTHM: regular rhythm GI: COMMON NORMALS: Soft to palpation and No hepatosplenomegaly present AUSCULTATION: Yes normoactive bowel sounds PALPATION: Yes Soft to palpation, No Tenderness to palpation present (GI), No Guarding due to palpation present (GI) and Yes No hepatosplenomegaly present Extremity: COMMON NORMALS: normal to inspection, capillary refill normal, no clubbing, cyanosis or edema, no calf tenderness and no pedal edema Neuro: SENSORIUM/ORIENTATION: Yes oriented to person, Yes oriented to place and Yes oriented to time Skin: COMMON NORMALS: no rashes or lesions noted GENERAL SKIN EXAM: no rashes or lesions noted Course Vital Signs: Vital signs: Vital Signs Temperature 98.7 F 05/22/22 17:06 Pulse Rate 68 05/22/22 20:29 Respiratory Rate 20 H 05/22/22 20:29 Blood Pressure 123/69 05/22/22 20:29 Pulse Oximetry 95 05/22/22 20:29 Oxygen Delivery Me thod 05/22/22 20:29 MDM - Overdose Medical Decision Making Bradycardia with heart rate in the 60s no respiratory distress no sedation. Patient's tells me that he took the pills at 1625 that was 1 hour from the time of this dictation. He is not showing any clinically significant bradycardia or respiratory suppression. Care signed out to Dr. Rivas at change of shift. See final notes for diagnosis and disposition. Patient presents with a suppose an overdose his vitals here been normal he has no signs of an overdose patient was evaluated by Dr. Rodriguez he is not suicidal he is wanting to go to [place] he states he has a place to stay in [place] I did set him up an Uber ride to [place] patient discharged into the [facility] Medical Records I reviewed the patient's medical records. Lab Data I reviewed the patient's lab results. : 05/22/22 20:28 05/22/22 20:09 Laboratory Results WBC 11.1 10^3/uL (4.0-10.0) H 05/22/22 20: RBC 5.30 10^6/uL (4.1-5.3) 05/22/22 20: Hgb 15.8 g/dL (11.7-16.6) 05/22/22: Hct 48.5 % (42.0-52.0) 05/22/22: MCV 91.5 fl (80-94) 05/22/22: MCH 29.8 pg (28.0-34.0) 05/22/22: MCHC 32.6 g/dL (30.0-36.0) 05/22/22 20: RDW 13.0 % (12.1-15.1) 05/22/22: Plt Count 371 10^3/cmm (130-400) 05/22/22: MPV 9.5 fL (7.4-10.4) 05/22/22: Neut % (Auto) 72.3 % 05/22/22: Lymph % (Auto) 19.3 % 05/22/22: [place] % (Auto) 5.8 % 05/22/22: Eos % (Auto) 1.7 % 05/22/22: Baso % (Auto) 0.4 % 05/22/22: Neut # (Auto) 8.04 10^3/uL (1.8-7.7) H 05/22/22: Lymph # (Auto) 2.2 10^3/uL (0.8-4.8) 05/22/22 20: [place] # (Auto) 0.7 10^3/uL (0.2-0.9) 05/22/22: Eos # (Auto) 0.2 10^3/uL (0.0-0.8) 05/22/22 20:28 Baso # (Auto) 0.0 10^3/uL (0.0-0.1) 05/22/22 Nucleated RBC % (auto) 0 % 05/22/22 Nucleated RBCs # 0.0 /100WBC 05/22/22: Sodium 138 mmol/L (136-145) 05/22/22 20:09 Potassium 4.2 mmol/L (3.5-5.1) 05/22/22 20:09 Chloride 99 mmol/L (98-107) 05/22/22 20:09 Carbon Dioxide 27 mmol/L (22-29) 05/22/22 20: Anion Gap 16.2 (5-19) 05/22/22 20:09 BUN 25 mg/dL (6-20) H 05/22/22 20:09 Creatinine 0.9 mg/dL (0.7-1.2) 05/22/22 20: GFR Calculation 95.5 mL/min (90-130) 05/22/22 20:09 Glucose 113 mg/dL (65-115) 05/22/22 20:09 Calculated Osmolality 291 mOsm/kg (285-295) 05/22/22 20:09 Calcium 10.3 mg/dL (8.5-10.5) 05/22/22 20:09 Total Bilirubin 0.3 mg/dL (0.15-1.2) 05/22/22 20:09 AST 45 U/L (0-40) H 05/22/22 20:09 ALT 57 U/L (0-41) H 05/22/22 20:09 Alkaline Phosphatase 123 U/L (40-130) 05/22/22 20:09 Total Protein 7.5 g/dL (6.6-8.7) 05/22/22 20:09 Albumin 4.2 g/dL (3.5-5.2) 05/22/22 20:09 Globulin 3.3 g/dL (1.3-4.6) 05/22/22 20:09 Urine Color Yellow (Yellow) 05/22/22 20:20 Urine Appearance Clear (CLEAR) 05/22/22:20 Urine pH 6 (5-7) 05/22/22 20:20 Ur Specific [place] 1.020 (1.005-1.030) 05/22/22 20:20 Urine Protein Neg (Negative) 05/22/22 20:20 Urine Glucose (UA) Norm (Normal) 05/22/22 20:20 Urine Ketones 1+ (Negative) H 05/22/22 20:20 Urine Blood Neg (Negative) 05/22/22 20:20 Urine Nitrate Negative (Negative) 05/22/22 20:20 Urine Bilirubin Neg (Negative) 05/22/22 20:20 Urine Urobilinogen Norm mg/dL (Negative) 05/22/22 20:20 Ur Leukocyte Esterase Negative (Negative) 05/22/22 20:20 Salicylates 1.2 mg/dL (3-10) L 05/22/22 20:09 Urine Opiates Screen Negative ng/mL (Negative) 05/22/22 20:20 Acetaminophen < 5.0 ug/mL (10-30) L 05/22/22 20:09 Ur Barbiturates Screen Negative ng/mL (Negative) 05/22/22 20:20 Ur Phencyclidine Scrn Negative ng/mL (Negative) 05/22/22 20:20 Ur Amphetamines Screen Negative ng/mL (Negative) 05/22/22 20:20 U Benzodiazepines Scrn Negative ng/mL (Negative) 05/22/22 20:20 Urine Cocaine Screen Negative ng/mL (Negative) 05/22/22 20:20 U Marijuana (THC) Screen Positive ng/mL (Negative) H 05/22/22 20:20 Discharge Plan Discharge Patient Disposition: Home Clinical Impression: Depression Condition: Stable Prescriptions: No Action venlafaxine 75 mg Capsule,Extended Release 24hr 225 mg PO DAILY 30 Days Qty: 90 1RF quetiapine 100 mg Tablet 200 mg PO BEDTIME 30 Days Qty: 60 1RF methocarbamol 500 mg Tablet 500 mg PO TID 30 Days Qty: 90 1RF meloxicam 15 mg Tablet 15 mg PO DAILY 30 Days Qty: 30 1RF lisinopril 10 mg Tablet 10 mg PO DAILY 30 Days Qty: 30 1RF metoprolol tartrate [Lopressor] 50 mg tablet 25 mg PO DAILY 30 Days Qty: 15 1RF oxycodone-acetaminophen 10-325 mg tablet 1 tab PO Q8H PRN (Reason: pain) 21 Days Qty: 42 0RF Rx Instructions: 3 times a day 1 week, then twice a day 1 week, then daily 1 week, then dc sulfamethoxazole-trimethoprim 800-160 mg tablet 1 tab PO BID biotin 10 mg Tablet 10 mg PO DAILY Probiotic 4X 10-15 mg Tablet,Delayed Release (Dr/Ec) 1 tab PO DAILY Discharge Orders: Discharge ED (Routine); Ordered 05/22/22 Ordered By: Darby Rivas Discharge Diet: Advance as tolerated Discharge Activity: Resume usual activity Patient Instructions: Depression (ED) Coding Level of Care Code ED Cruise Counselor for Chg Fwd Exam Comprehensive Documented by User: Darby Rivas MD 05/22/22 22:04 HPI - Overdose General: Chief Complaint: Overdose Stated Complaint: overdose Time Seen by Provider: 05/22/22 17:01 [facility] ED PFSH: Medical History COPD with asthma Family history of suicide FATHER COMMITTED SUICIDE 2017 Suicide attempt by hanging LAST ATTEMPT 04/2021 Family History Father Suicide Sociopathic personality disorder Drug abuse Alcohol abuse Mother Bipolar disorder Drug abuse Course Vital Signs: Vital signs: Vital Signs Temperature 98.7 F 05/22/22 17:06 Pulse Rate 68 05/22/22 20:29 Respiratory Rate 20 H 05/22/22 20:29 Blood Pressure 123/69 05/22/22 20:29 Pulse Oximetry 95 05/22/22 20:29 Oxygen Delivery Me thod 05/22/22 20:29 MDM - Overdose Medical Decision Making Bradycardia with heart rate in the 60s no respiratory distress no sedation. Patient's tells me that he took the pills at 1625 that was 1 hour from the time of this dictation. He is not showing any significant signs of bradycardia or respiratory suppression. Patient presents with a suppose an overdose his vitals here been normal he has no signs of an overdose patient was evaluated by Dr. Rodriguez he is not suicidal he is wanting to go to [place] he states he has a place to stay in [place] I did set him up an Uber ride to [place] patient discharged into the [facility] Lab Data : 05/22/22 20:28 05/22/22 20:09 Laboratory Results WBC 11.1 10^3/uL (4.0-10.0) H 05/22/22: RBC 5.30 10^6/uL (4.1-5.3) 05/22/22 20: Hgb 15.8 g/dL (11.7-16.6) 05/22/22: Hct 48.5 % (42.0-52.0) 05/22/22: MCV 91.5 fl (80-94) 05/22/22: MCH 29.8 pg (28.0-34.0) 05/22/22: MCHC 32.6 g/dL (30.0-36.0) 05/22/22: RDW 13.0 % (12.1-15.1) 05/22/22: Plt Count 371 10^3/cmm (130-400) 05/22/22: MPV 9.5 fL (7.4-10.4) 05/22/22: Neut % (Auto) 72.3 % 05/22/22: Lymph % (Auto) 19.3 % 05/22/22: [place] % (Auto) 5.8 % 05/22/22: Eos % (Auto) 1.7 % 05/22/22: Baso % (Auto) 0.4 % 05/22/22: Neut # (Auto) 8.04 10^3/uL (1.8-7.7) H 05/22/22: Lymph # (Auto) 2.2 10^3/uL (0.8-4.8) 05/22/22: [place] # (Auto) 0.7 10^3/uL (0.2-0.9) 05/22/22 20: Eos # (Auto) 0.2 10^3/uL (0.0-0.8) 05/22/22 20:28 Baso # (Auto) 0.0 10^3/uL (0.0-0.1) 05/22/22: Nucleated RBC % (auto) 0 % 05/22/22: Nucleated RBCs # 0.0 /100WBC 05/22/22:28 Sodium 138 mmol/L (136-145) 05/22/22 20:09 Potassium 4.2 mmol/L (3.5-5.1) 05/22/22 20:09 Chloride 99 mmol/L (98-107) 05/22/22 20:09 Carbon Dioxide 27 mmol/L (22-29) 05/22/22 20:09 Anion Gap 16.2 (5-19) 05/22/22 20:09 BUN 25 mg/dL (6-20) H 05/22/22 20:09 Creatinine 0.9 mg/dL (0.7-1.2) 05/22/22 20:09 GFR Calculation 95.5 mL/min (90-130) 05/22/22 20:09 Glucose 113 mg/dL (65-115) 05/22/22 20:09 Calculated Osmolality 291 mOsm/kg (285-295) 05/22/22 20:09 Calcium 10.3 mg/dL (8.5-10.5) 05/22/22 20:09 Total Bilirubin 0.3 mg/dL (0.15-1.2) 05/22/22 20:09 AST 45 U/L (0-40) H 05/22/22 20:09 ALT 57 U/L (0-41) H 05/22/22 20:09 Alkaline Phosphatase 123 U/L (40-130) 05/22/22 20:09 Total Protein 7.5 g/dL (6.6-8.7) 05/22/22 20:09 Albumin 4.2 g/dL (3.5-5.2) 05/22/22 20:09 Globulin 3.3 g/dL (1.3-4.6) 05/22/22 20:09 Urine Color Yellow (Yellow) 05/22/22 20:20 Urine Appearance Clear (CLEAR) 05/22/22 20:20 Urine pH 6 (5-7) 05/22/22 20:20 Ur Specific [place] 1.020 (1.005-1.030) 05/22/22 20:20 Urine Protein Neg (Negative) 05/22/22 20:20 Urine Glucose (UA) Norm (Normal) 05/22/22 20:20 Urine Ketones 1+ (Negative) H 05/22/22 20:20 Urine Blood Neg (Negative) 05/22/22 20:20 Urine Nitrate Negative (Negative) 05/22/22 20:20 Urine Bilirubin Neg (Negative) 05/22/22 20:20 Urine Urobilinogen Norm mg/dL (Negative) 05/22/22 20:20 Ur Leukocyte Esterase Negative (Negative) 05/22/22 20:20 Salicylates 1.2 mg/dL (3-10) L 05/22/22 20:09 Urine Opiates Screen Negative ng/mL (Negative) 05/22/22 20:20 Acetaminophen < 5.0 ug/mL (10-30) L 05/22/22 20:09 Ur Barbiturates Screen Negative ng/mL (Negative) 05/22/22 20:20 Ur Phencyclidine Scrn Negative ng/mL (Negative) 05/22/22 20:20 Ur Amphetamines Screen Negative ng/mL (Negative) 05/22/22 20:20 U Benzodiazepines Scrn Negative ng/mL (Negative) 05/22/22 20:20 Urine Cocaine Screen Negative ng/mL (Negative) 05/22/22 20:20 U Marijuana (THC) Screen Positive ng/mL (Negative) H 05/22/22 20:20 Discharge Plan Discharge Patient Disposition: Home Clinical Impression: Depression Condition: Stable Prescriptions: No Action venlafaxine 75 mg Capsule,Extended Release 24hr 225 mg PO DAILY 30 Days Qty: 90 1RF quetiapine 100 mg Tablet 200 mg PO BEDTIME 30 Days Qty: 60 1RF methocarbamol 500 mg Tablet 500 mg PO TID 30 Days Qty: 90 1RF meloxicam 15 mg Tablet 15 mg PO DAILY 30 Days Qty: 30 1RF lisinopril 10 mg Tablet 10 mg PO DAILY 30 Days Qty: 30 1RF metoprolol tartrate [Lopressor] 50 mg tablet 25 mg PO DAILY 30 Days Qty: 15 1RF oxycodone-acetaminophen 10-325 mg tablet 1 tab PO Q8H PRN (Reason: pain) 21 Days Qty: 42 0RF Rx Instructions: 3 times a day 1 week, then twice a day 1 week, then daily 1 week, then dc sulfamethoxazole-trimethoprim 800-160 mg tablet 1 tab PO BID biotin 10 mg Tablet 10 mg PO DAILY Probiotic 4X 10-15 mg Tablet,Delayed Release (Dr/Ec) 1 tab PO DAILY Discharge Orders: Discharge ED (Routine); Ordered 05/22/22 Ordered By: Darby Rivas Discharge Diet: Advance as tolerated Discharge Activity: Resume usual activity Patient Instructions: Depression (ED) Coding Level of Care Code ED Cruise Counselor for Madie Fwd Exam Comprehensive
[2022-05-22 17:50] VITALS: BP 109/72; PULSE 69; O2SAT 97
[2022-05-22 18:05] VITALS: BP 117/65; PULSE 67; O2SAT 96
[2022-05-22 18:15] VITALS: BP 123/74; PULSE 73; O2SAT 94
[2022-05-22 20:27] LABS: Add Urine Microscopic? NO; Charge for UA Resulting for Rev
[2022-05-22 20:29] VITALS: BP 123/69; PULSE 68; RESP 20; O2SAT 95
[2022-05-22 20:34] LABS: Blood Urine Neg (Negative); Glucose Urine UA Norm (Normal); Ketones Urine 1+ (Negative); Nitrate Urine Negative (Negative); Protein Urine Neg (Negative); Urine Appearance Clear (CLEAR); Urine Color Yellow (Yellow); pH Urine 6 (5-7)
[2022-05-22 20:35] LABS: Bilirubin Urine Neg (Negative); Leukocyte Esterase Urine Negative (Negative); Urobilinogen Urine Norm (Negative)
[2022-05-22 20:38] LABS: Acetaminophen < 5.0 ug/mL (10-30); Alanine Aminotransferase 57 U/L (0-41); Albumin Level 4.2 g/dL (3.5-5.2); Alkaline Phosphatase 123 U/L (40-130); Anion Gap 16.2 (5-19); Aspartate Amino Transferase 45 U/L (0-40); Blood Urea Nitrogen 25 mg/dL (6-20); Calcium 10.3 mg/dL (8.5-10.5); Carbon Dioxide 27 mmol/L (22-29); Chloride 99 mmol/L (98-107); Globulin 3.3 g/dL (1.3-4.6); Glomerular Filtration Rate 95.5 mL/min (90-130); Glucose 113 mg/dL (65-115); Osmolality Calculated 291 mOsm/kg (285-295); Potassium 4.2 mmol/L (3.5-5.1); Salicylate 1.2 mg/dL (3-10); Sodium 138 mmol/L (136-145); Total Bilirubin 0.3 mg/dL (0.15-1.2); Total Protein 7.5 g/dL (6.6-8.7)
[2022-05-22 20:51] LABS: Amphetamines Screen Urine Negative (Negative); Barbiturates Screen Urine Negative (Negative); Benzodiazepines Screen Urine Negative (Negative); Cocaine Screen Urine Negative (Negative); Opiate Screen Urine Negative (Negative); PCP Screen Urine Negative (Negative); THC Screen Urine Positive (Negative)
[2022-05-22 21:02] LABS: Basophils % 0.4 %; Eosinophils # 0.2 10^3/uL (0.0-0.8); Eosinophils % 1.7 %; Hematocrit 48.5 % (42.0-52.0); Hemoglobin 15.8 g/dL (11.7-16.6); Lymphocytes # 2.2 10^3/uL (0.8-4.8); Lymphocytes % 19.3 %; Mean Corpuscular HGB Conc 32.6 g/dL (30.0-36.0); Mean Corpuscular Hemoglobin 29.8 pg (28.0-34.0); Mean Corpuscular Volume 91.5 fl (80-94); Mean Platelet Volume 9.5 fL (7.4-10.4); Monocytes # 0.7 10^3/uL (0.2-0.9); Monocytes % 5.8 %; Neutrophils # 8.04 10^3/uL (1.8-7.7); Neutrophils % 72.3 %; Nucleated Red Blood Cells % 0 %; Platelet Count 371 10^3/cmm (130-400); White Blood Count 11.1 10^3/uL (4.0-10.0)
== END 2022-05-22 23:00 | disposition home or self-care (01) ==
PROVIDERS: Family Medicine; Emergency Provider Emergency Medicine
DX: F32.A Depression, unspecified (principal); J44.9 Chronic obstructive pulmonary disease, unspecified; Z91.51 Personal history of suicidal behavior
CPT/HCPCS: 80053; 80306; 80307; 81003; 85025; 93005; 99284

== ENCOUNTER 2023-10-11 14:43 | Inpatient (IN) | payer MEDICAID, SELFPAY ==
[2023-10-11 14:55] VITALS: BP 135/89; PULSE 85; RESP 16; TEMP 36.5; O2SAT 95
[2023-10-11 14:57] VITALS: BMI 27.3
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
--- NOTE | 2023-10-11 18:00 | PC.NURSE ---
Dr. Rodriguez requested this nurse restart the patient's home medications of remeron 15mg qhs, trazodone 150mg qhs, triamcinolone 0.1% topically bid, wellbutrin xl 150mg daily, clonidine 0.1 qhs, mupirocin bid, and a one time dose of clonazepam 0.5mg until the previous strength and directions he was on can be verified. LEELEE Bonilla, from [facility] in [place], [place] was able to verify he had taken the wellbutrin, remeron, trazodone, and clonazepam while admitted there on 08/24/23 and another RN from [facility] in [place], [place] was able to verify he was taking the remeron, trazodone, triamcinolone, wellbutrin, clonidine, clonazepam, and mupirocine while admitted there on 06/06/23.
[2023-10-11 19:38] VITALS: BP 153/95; PULSE 88; RESP 18; TEMP 36.7; O2SAT 98
[2023-10-11 20:39] VITALS: BP 153/95
[2023-10-11] MEDS: cloNIDine 0.1 mg Tablet PO (20:39)
[2023-10-11] MEDS: mirtazapine 15 mg Tablet PO (20:39)
[2023-10-11] MEDS: CLONazepam 0.5 mg Tablet PO (20:39)
[2023-10-11] MEDS: triamcinolone 0.1% cream 15 gm 1 APPLIC TOPICAL (20:47)
[2023-10-11] MEDS: mupirocin oint 22 gm 1 APPLIC TOPICAL (20:47)
[2023-10-11] MEDS: trazodone 50 mg Tablet PO (22:29)
[2023-10-11] MEDS: trazodone 100 mg Tablet PO (23:38)
[2023-10-12 06:00] VITALS: RESP 16
[2023-10-12] MEDS: buPROPion XL (24 HR) 150 mg Tablet PO (08:05)
[2023-10-12] MEDS: mupirocin oint 22 gm 1 APPLIC TOPICAL ×2 (09:32→19:48)
[2023-10-12] MEDS: triamcinolone 0.1% cream 15 gm 1 APPLIC TOPICAL ×2 (09:32→19:49)
[2023-10-12] MEDS: nicotine 2 mg Gum BUCCAL (10:55)
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
[2023-10-12 14:00] VITALS: BP 120/81; PULSE 94; RESP 17; TEMP 36.4; O2SAT 94
[2023-10-12 19:48] VITALS: BP 126/64
[2023-10-12] MEDS: cloNIDine 0.1 mg Tablet PO (19:48)
[2023-10-12] MEDS: mirtazapine 15 mg Tablet PO (19:48)
[2023-10-12] MEDS: trazodone 50 mg Tablet PO (19:48)
[2023-10-12] MEDS: hyDROXYzine 25 mg Capsule 50 MG PO (20:12)
[2023-10-12 20:27] VITALS: BP 126/64; PULSE 82; RESP 16; TEMP 36.6; O2SAT 93
[2023-10-12] MEDS: trazodone 100 mg Tablet PO (21:17)
[2023-10-13 06:00] VITALS: BP 92/57; PULSE 67; RESP 16; O2SAT 94
[2023-10-13] MEDS: buPROPion XL (24 HR) 150 mg Tablet PO (08:24)
[2023-10-13] MEDS: mupirocin oint 22 gm 1 APPLIC TOPICAL ×2 (08:24→19:51)
[2023-10-13] MEDS: triamcinolone 0.1% cream 15 gm 1 APPLIC TOPICAL ×2 (08:24→19:50)
--- NOTE | 2023-10-13 13:13 | P.NPUPN_ITS ---
Subjective NPU Subjective: Patient presented today reporting that he is feeling better now that he is back on his medication. He was clear that this was his full intention of coming to the hospital and we discussed how critical it was for him to connect with [facility] with the referrals from the social work team given the impact that his continued hospitalizations have on future assistance he will receive as well as his ability to have sustained wellness. He reports agreeableness to following up. He was very happy about the plan to discharge him back to the [facility] in the morning. Mental Status Exam MSE Comments: This is a well-nourished well-developed white male in hospital scrubs with adequate grooming and eye contact.? Significant tattooing on his exposed skin with almost complete tattooing on his bald head.? No abnormal movements except for mild psychomotor agitation.? Cooperative with exam in no acute distress.? Speech was normal rate and volume.? Mood described as much better, affect congr uent.? Thought process organized.? Thought content: Patient denied suicidal or homicidal ideations, there were no delusions reported or noted, he denied any current auditory or visual hallucinations.? Attention and concentration are intact and memory appeared somewhat reliable but none were formally tested.? He is alert and oriented x 3.? Insight is limited, judgment appears poor and impulse control is limited versus impaired. Vitals/I&O/Wt Last Vital Signs Temp 97.9 F 10/12/23 20:27 Pulse 67 10/13/23 06:00 Resp 16 10/13/23 06:00 BP 92/57 10/13/23 06:00 Pulse Ox 94 10/13/23 06:00 O2 Del Method Room Air 10/13/23 06:00 Weight last 48 hrs Weight 81.647 kg Weight 81.647 kg A&P Assessment and plan (1) Major depressive disorder, recurrent severe without psychotic features: (2) PTSD (post-traumatic stress disorder): (3) Borderline personality disorder: (4) COPD with asthma: Plan The patient is a 38-year-old white male with a history of PTSD, major depressive disorder along with borderline personality traits with a history of multiple inpatient hospitalizations which she under represents and likely represents hospital hopping currently reporting worsening depression with continued chronic PTSD symptoms against the backdrop of not having his medication for 1 to 2 mo nths. 1. Restart medications at appropriate doses except for Vraylar we will have to get it from an outside pharmacy. 2. Continue every 15 minute checks for safety. 3. Encourage individual, group and milieu therapies. 4. Encourage sober living treatment after discharge at the highest level care to which he is willing to commit. 5. Encourage some follow-up at a mental health clinic to avoid this sporadic medication adherence. Involuntary Hold Information 96 Hour Hold: 96 Hour Involuntary Admission: Yes 96 Hour Hold Ending Date: 10/16/23 96 Hour Hold Ending Time: 00:01 Attestations NPU Medical Necessity Statement*: Inpatient hospitalization is medically necessary and the clinically appropriate intervention, at this time. We will monitor medications and make changes as indicated. Likely length of stay is 1 day. Coding Level of Care Code Acute Code for [facility] Fwd Diagnoses Major depressive disorder, recurrent severe without psychotic features F33.2 PTSD (post-traumatic stress disorder) F43.10 Borderline personality disorder F60.3 COPD with asthma J44.9
[2023-10-13 14:00] VITALS: BP 127/86; PULSE 87; RESP 18; TEMP 37.1; O2SAT 94
[2023-10-13] MEDS: nicotine 2 mg Gum BUCCAL (15:04)
[2023-10-13 19:50] VITALS: BP 127/86
[2023-10-13] MEDS: mirtazapine 15 mg Tablet PO (19:50)
[2023-10-13] MEDS: cloNIDine 0.1 mg Tablet PO (19:50)
[2023-10-13 20:10] VITALS: BP 127/80; PULSE 79; RESP 16; TEMP 36.7; O2SAT 95
[2023-10-13] MEDS: trazodone 150 mg Tablet PO (21:52)
[2023-10-14 06:00] VITALS: BP 153/102; PULSE 72; RESP 18; TEMP 36.9; O2SAT 97
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
[2023-10-14 07:10] VITALS: BP 153/102; PULSE 72; RESP 18; TEMP 36.9; O2SAT 97
== END 2023-10-14 08:12 | disposition home or self-care (01) | DRG 885 ==
PROVIDERS: Admitting Provider Psychiatry & Neurology Psychiatry; Visit Provider Psychiatry & Neurology Psychiatry
DX: F33.2 Major depressive disorder, recurrent severe without psychotic features (principal); R45.851 Suicidal ideations; F60.3 Borderline personality disorder; F43.12 Post-traumatic stress disorder, chronic; Z91.128 Patient's intentional underdosing of medication regimen for other reason; Z63.4 Disappearance and death of family member
CPT/HCPCS: 97150; 97165